=== PATIENT | female | born 1940 | race Caucasian/White ===

== ENCOUNTER 2023-05-26 14:42 | Emergency (ER) | payer MEDICARE, SELFPAY ==
--- NOTE | ~2023-05-26 | XR_ITS ---
EXAMINATION: XR forearm RT 2V DATE: 05/26/2023 15:33 INDICATION: Right forearm injury. TECHNIQUE: 2 views of right forearm were obtained. COMPARISON: None. FINDINGS: There is a comminuted fracture of diaphysis of right ulna. The main distal fracture fragmen t demonstrates one cortical width volar displacement. There is an old healed fracture of distal radiu s with 4 degrees dorsal tilt of the distal articular surface. Internal fixation is seen with volar an d dorsal plates and screws. The elbow joint space is normal. No elbow joint effusion. IMPRESSION: 1. Acute comminuted fracture of ulnar diaphysis. Reviewed, dictated and finalized at location A.
--- NOTE | ~2023-05-26 | XR_ITS ---
EXAMINATION: XR wrist RT min 3V DATE: 05/26/2023 15:33 INDICATION: Right wrist injury. TECHNIQUE: 3 views of right wrist were obtained. COMPARISON: None. FINDINGS: There is an old healed fracture of distal radius with dorsal and volar plates and screws. T he distal articular surface demonstrates 4 degrees dorsal tilt. There is an acute comminuted fracture of ulnar diaphysis. The distal fracture main distal fracture fragment demonstrates one cortical widt h volar displacement. There is severe osteoarthritis of radioscaphoid joint and radiolunate joint and triscaphe joint. Osteopenia is noted. IMPRESSION: 1. Acute comminuted fracture of ulnar diaphysis. 2. Polyarticular osteoarthritis. Reviewed, dictated and finalized at location A.
[2023-05-26 14:45] VITALS: BP 142/51; PULSE 64; RESP 12; TEMP 36.6; O2SAT 100
--- NOTE | 2023-05-26 15:26 | ED.UPPEXIN ---
HPI - Extremity Injury (Upper) General Chief Complaint: Extremity Injury, Upper Stated Complaint: R arm pain Time Seen by Provider: 05/26/23 15:06 History of Present Illness HPI narrative: [facility] and thrashing around per EMS report, injured her R forearm. Patient denies complaints. A&Ox1 at baseline Related Data Allergies Allergy/AdvReac Type Severity Reaction Status Date / Time No Known Allergies Allergy Verified 05/26/23 14:59 Review of Systems Review of Systems: ROS unobtainable: Yes unobtainable due to mental status Exam Narrative: EXAMINATION OF ORGAN SYSTEMS/BODY AREAS: Constitutional: Vital signs per nursing GENERAL:[No acute distress, non-toxic appearing.] HEAD: Normal with no signs of head trauma. EYES: EOMI, conjunctiva normal ENT: Hearing grossly intact LUNGS: Nonlabored breathing. HEART: [Regular rate and rhythm]. Normal radial pulse ABD: [Soft], [nontender to palpation] EXT: Normal range of motion, she is tender to palpation to her forearm/wrist on the right SKIN: [No rashes or lesions.] NEURO: [Alert. No gross focal sensory or strength deficits.] PSYCH: Normal affect Course Vital Signs Vital signs: Vital Signs Temperature 97.8 F 05/26/23 14:45 Pulse Rate 64 05/26/23 14:45 Respiratory Rate 12 05/26/23 14:45 Blood Pressure 142/51 H 05/26/23 14:45 Pulse Oximetry 100 05/26/23 14:45 Oxygen Delivery Room Air 05/26/23 14:45 Temperature 97.8 F 05/26/23 14:45 Pulse Rate 64 05/26/23 14:45 Respiratory Rate 12 05/26/23 14:45 Blood Pressure 142/51 H 05/26/23 14:45 Pulse Oximetry 100 05/26/23 14:45 Oxygen Delivery Room Air 05/26/23 14:45 Procedures Orthopedic Splinting/Casting Injury #1: Splinting/Casting Date: 05/26/23 Splinting/Casting Time: 16:45 Side: right Upper Extremity Injury Location: forearm Upper Extremity Immobilizer: sling/shoulder immobilizer and posterior splint Splint: customized in ED Pre-Procedure Neuro Vascular Exam: normal Post-Procedure Neuro Vascular Exam: normal MDM - Extremity Injury (Upper) MDM Narrative Medical decision making narrative: 1) Differential diagnosis: Sprain, fracture 2) Comorbidities: Dementia 3) External notes reviewed: n/a 4) History sources independently obtained from: EMS 5) Discussion of management with: n/a 6) Independent interpretation of: forearm xray: ulnar shaft fracture 7) Diagnostic tests or therapies considered but not ordered: n/a 8) Social determinants of health: n/a 9) Shared decision makinF presents here with injury to her right forearm, she is well appearing and resting comfortably unless she touches her right arm at which point she starts crying. X-ray unfortunately showing acute ulnar fracture, splint placed, given follow-up to Orthopedics. Discharge Plan Discharge Clinical Impression: Ulnar shaft fracture Patient Disposition: [facility]Asst Living Condition: Stable Instructions: Antibiotic Form, Arm Fracture in Adults (ED) Additional Instructions: Please keep the arm splint until you follow-up with Orthopedics, come back to the hospital if you feel worse. Prescriptions: New methocarbamol 750 mg tablet 750 mg PO TID PRN (Reason: muscle spasm) Qty: 30 0RF acetaminophen [Tylenol Extra Strength] 500 mg tablet 1,000 mg PO Q6H PRN (Reason: pain) Qty: 50 0RF Follow-up/Referrals: Ronny Allen MD [Physician] - 2 Days
[2023-05-26] MEDS: MORPHINE SULFATE (*CRX) 4 MG/ML INJ IV PUSH (16:34)
[2023-05-26 18:22] VITALS: BP 137/61; PULSE 67; RESP 17; O2SAT 98
== END 2023-05-26 18:25 ==
PROVIDERS: Emergency Provider Emergency Medicine; PCP Internal Medicine
DX: S59.091A Other physeal fracture of lower end of ulna, right arm, initial encounter for closed fracture (principal); F03.90 Unspecified dementia, unspecified severity, without behavioral disturbance, psychotic disturbance, mood disturbance, and anxiety; M19.031 Primary osteoarthritis, right wrist; X58.XXXA Exposure to other specified factors, initial encounter
CPT/HCPCS: 29105; 73090; 73110; 96374; 99284; A4565; J2270

== ENCOUNTER 2023-12-03 17:57 | Inpatient (IN) | payer MEDICARE, SELFPAY ==
[2023-12-03] VITALS (11 sets, daily range): BP systolic 128–171; BP diastolic 53–138; PULSE 57–64; RESP 15–23; TEMP 36.7; O2SAT 96–100
--- NOTE | ~2023-12-03 | CT_ITS ---
EXAMINATION: CT brain wo con DATE: 12/03/2023 18:58 INDICATION: fall, unknown head injury . TECHNIQUE: Computed tomography (CT) of the head was performed without intravenous contrast. The mA wa s adjusted according to patient size. Iterative reconstruction technique was employed. The dose-lengt h product was 983.67 mGy-cm. COMPARISON: None. FINDINGS: No acute intracranial hemorrhage or extra-axial fluid collection. No hydrocephalus, mass, or herniation. No acute ischemic infarct. Unremarkable dural venous sinus attenuation. No acute osseous abnormality. Complete right mastoid air cell opacification, near complete left mastoid air cell opacification. Jose ateral middle ear fluid, extensive paranasal sinus mucosal thickening sparing only the frontal sinuse s.. Moderate atrophy and chronic white matter change. Atherosclerotic intracranial calcification. Bilater al lens replacements. Bilateral old lacunar infarcts. Focal old right medial occipital infarct. IMPRESSION: No acute intracranial process. Extensive paranasal sinus mucoperiosteal disease. Bilateral mastoid effusions and middle ear fluid, correlate for clinical findings of otomastoiditis. Reviewed, dictated and finalized at location K. IMPRESSION: No acute intracranial process. Extensive paranasal sinus mucoperiosteal disease. Bilateral mastoid effusions and middle ear fluid, correlate for clinical findin gs of otomastoiditis.
--- NOTE | ~2023-12-03 | US_ITS ---
EXAMINATION: US renal BI DATE: 12/05/2023 15:31 INDICATION: Elevated creatinine. TECHNIQUE: Multiple ultrasound grayscale images of the kidneys were obtained. COMPARISON: None. FINDINGS: Sensitivity is decreased by obesity. The right kidney measures 12.5 x 4.4 x 5.4 cm. The left kidney m easures 9.0 x 4.6 x 5.6 cm. The kidneys demonstrate normal parenchymal echogenicity. There is no hydr onephrosis. The bladder is not visualized. IMPRESSION: 1. Normal kidney sizes. No hydronephrosis. Reviewed, dictated and finalized at location A.
--- NOTE | ~2023-12-03 | XR_ITS ---
CHEST RADIOGRAPH CLINICAL HISTORY: sob . COMPARISON: 12/03/2023 TECHNIQUE: Single portable view of the chest. Examination is limited both by patient rotation and mod erate kyphosis.. FINDINGS The cardiomediastinal silhouette is partially obscured. Increased interstitial markings are identified bilaterally, findings suggesting mild pulmonary vascul ar congestion. The remainder of the lungs are clear. IMPRESSION: Limited evaluation of the chest secondary to patient rotation and moderate kyphosis demonstrates mild pulmonary vascular congestion, without focal infiltrate or significant pleural effusion. Reviewed, dictated and finalized at location A. IMPRESSION: Limited evaluation of the chest secondary to patient rotation and moderate kyph osis demonstrates mild pulmonary vascular congestion, without focal infiltrate or significant pleural effusion.
--- NOTE | ~2023-12-03 | CT_ITS ---
EXAMINATION: CT cervical spine wo con DATE: 12/03/2023 18:58 INDICATION: fall, unknown head injury TECHNIQUE: Computed tomography (CT) of the cervical spine was performed without intravenous contrast. Automated exposure control and iterative reconstruction technique were employed. The dose-length pro duct was 460.39 mGy-cm. COMPARISON: None. FINDINGS: Vertebral Body Alignment: Multilevel retrolisthesis at C3-4. Minimal anterolisthesis at C4-5. Craniocervical and atlantoaxial alignment: Moderate degenerative change with pannus. Alignment intact . Osseous structures/fracture: No evidence of a lytic or blastic process in the visualized spine. No e vidence of acute fracture. Chronic appearing fragmentation of the spinous process tips at C6 and C7. Cervical soft tissues: The paraspinal soft tissues planes are maintained. Degenerative changes: Degenerative changes, without severe neural foraminal or central canal narrowin g. IMPRESSION: No acute fracture or traumatic malalignment in the cervical spine. Reviewed, dictated and finalized at location K.
--- NOTE | ~2023-12-03 | XR_ITS ---
EXAMINATION: XR chest 1V Exam Date/Time: 12/03/2023 18:49 CDT HISTORY: fall Comparison: None. RESULT: Lines, tubes, and devices: None. Lungs and pleura: Senescent change, otherwise clear. Cardiomediastinal silhouette: Unremarkable. Other: No acute osseous or upper abdominal finding. IMPRESSION: No acute cardiopulmonary process. Reviewed, dictated and finalized at location K.
--- NOTE | 2023-12-03 18:33 | ECG_ITS ---
Test Date: 2023-12-03 19:10:09 Measurements Intervals [place] Rate: 58 P: 98 NC: 224 QRS: 15 QRSD: 117 T: 62 QT: 452 QTc: 446 Interpretive Statements SINUS BRADYCARDIA WITH FIRST DEGREE AV BLOCK RIGHT BUNDLE BRANCH BLOCK [120+ ms QRS DURATION, UPRIGHT V1, 40+ ms S IN I/aVL/V4/V5/V6] No previous ECG available for comparison Electronically Signed On 12-03-2023 21:10:30 CDT by Zaki Molina M.D.
[2023-12-03 19:52] LABS: Basophils Absolute Auto 0.1 K/mm3 (0.0-0.1); Basophils Percent Auto 0.6 % (0.2-1.2); Eosinophils Absolute Auto 0.2 K/mm3 (0-0.3); Eosinophils Percent Auto 2.3 % (0-4.4); Hematocrit 33.6 % (37.0-47.0); Hemoglobin 11.1 g/dL (12.0-15.0); Immature Granulocyte Absolute 0.07 K/mm3 (0.00-0.031); Immature Granulocyte Percent A 0.7 % (0-0.5); Lymphocytes Absolute Auto 2.14 K/mm3 (0.9-3.2); Lymphocytes Percent Auto 20.6 % (18.3-44.2); Mean Corpuscular Hemoglobin 31.1 pg (26-34); Mean Corpuscular Volume 94.1 fl (80-100); Mean Platelet Volume 10.3 fl (7.4-10.4); Monocytes Absolute Auto 0.7 K/mm3 (0.1-0.6); Monocytes Percent Auto 6.7 % (2.6-8.5); Neutrophils Absolute Auto 7.2 K/mm3 (1.3-6.7); Neutrophils Percent Auto 69.1 % (45.5-73.1); Platelet Count Result 326 k/mm3 (150-375); Red Blood Count 3.57 M/mm3 (4.2-5.4); Red Cell Distribution Width 13.7 % (11.5-14.5); White Blood Count 10.4 K/mm3 (4.5-10.0)
[2023-12-03 20:05] LABS: Anion Gap 10 mmol/L (4-12); Blood Urea Nitrogen 54 mg/dL (7-17); Calcium 9.3 mg/dL (8.4-10.2); Carbon Dioxide 25 mmol/L (22-30); Chloride 101 mmol/L (98-107); Estimated CRCL calculation 16 ml/min; Estimated Glomerular Filt Rate 17; Glucose 272 mg/dL (65-110); Potassium 5.4 mmol/L (3.4-5.0); Sodium 136 mmol/L (137-145)
[2023-12-03 20:16] LABS: Add Urine Microscopic? YES; Appearance Urine Turbid (Clear); Bacteria Urine 4+ /hpf; Bilirubin Urine Negative (Negative); Blood Urine Negative (Negative); Color Urine Yellow (Yellow); Glucose Urine UA Negative (Negative); Ketones Urine Negative (Negative); Leukocyte Esterase Ur 3+ LEU/UL (Negative); Need Manual Microscopic Reviewed; Nitrate Urine Positive (Negative); Protein Urine 3+ mg/dL (Negative); RBC Urine 0-2 /hpf (0-2); Specific Grav Ur 1.013 (1.001-1.035); Squamous Epithelial Cell Urine None Seen /hpf (Few); Urobilinogen Urine 0.2 mg/dL (<2.0); WBC Urine >100 /hpf (0-3)
[2023-12-03] MEDS: HALOPERIDOL LACTATE 5 MG/ML VIAL IM (21:32)
--- NOTE | 2023-12-03 21:32 | ED.FALL ---
HPI - Fall General Chief Complaint: Fall Stated Complaint: fall while transferring History of Present Illness HPI Narrative: 83-year-old female with a history of COPD, MDD, hypertension, cardiomegaly, hypothyroidism, type 2 diabetes, 3rd, CKD stage 3, hyperlipidemia, thrombocytosis presents to the emergency department via EMS from local care home for a fall. the patient is very hard of hearing. Per care home report the patient fell while trying to transfer from bed to her wheelchair. This was unwitnessed and is unsure if she lost consciousness or hit her head. Upon my evaluation the patient has no complaints. She is A&O times 2-3 which is her baseline. Related Data Home Medications Medication Instructions Recorded Confirmed amlodipine 5 mg tablet 5 mg PO DAILY 08/07/23 12/03/23 atorvastatin 10 mg tablet 10 mg PO DAILY 08/07/23 12/03/23 brexpiprazole 0.5 mg tablet 0.5 mg PO DAILY 08/07/23 12/03/23 (Rexulti) bupropion HCl 150 mg 24 hr tablet, 300 mg PO QAM 08/07/23 12/03/23 extended release (Wellbutrin XL) divalproex 250 mg tablet,delayed 250 mg PO Q12H 08/07/23 12/03/23 release (Depakote) famotidine 20 mg tablet 20 mg PO DAILY 08/07/23 12/03/23 furosemide 40 mg tablet 40 mg PO QAM 08/07/23 12/03/23 glucagon 1 mg solution for 1 mg subcut Q20M PRN Hypoglycemia 08/07/23 12/03/23 injection levothyroxine 150 mcg capsule 150 mcg PO DAILY 08/07/23 12/03/23 linagliptin 5 mg tablet (Tradjenta) 5 mg PO QAM 08/07/23 12/03/23 lisinopril 40 mg tablet 40 mg PO DAILY 08/07/23 12/03/23 metformin 500 mg tablet 500 mg PO DAILY 08/07/23 12/03/23 metolazone 2.5 mg tablet 2.5 mg PO DAILY 08/07/23 12/03/23 metoprolol tartrate 25 mg tablet 25 mg PO BID 08/07/23 12/03/23 multivitamin 1 tablet PO DAILY 08/07/23 12/03/23 ondansetron HCl 4 mg tablet 4 mg PO Q6H PRN nausea/vomiting 08/07/23 12/03/23 albuterol sulfate 90 mcg/actuation 2 puff inhalation Q4H PRN 12/03/23 12/03/23 aerosol inhaler sob/wheezing ascorbic acid (vitamin C) 1,000 mg 1 g PO DAILY 12/03/23 12/03/23 tablet calcium carbonate 400 mg PO BID 12/03/23 12/03/23 cholestyramine (with sugar) 4 gram 1 ea PO DAILY 12/03/23 12/03/23 powder for susp in a packet insulin glargine 100 unit/mL (3 30 unit subcut DAILY 12/03/23 12/03/23 mL) subcutaneous pen (Lantus Solostar U-100 Insulin) insulin lispro 100 unit/mL 12 unit subcut DIRECTED 12/03/23 12/03/23 subcutaneous solution (Admelog U-100 Insulin lispro) isosorbide mononitrate 30 mg 30 mg PO DAILY 12/03/23 12/03/23 tablet,extended release 24 hr lanolin alcohols-mineral 1 applic topical BID 12/03/23 12/03/23 oil-w.petrolatum-ceresin topical cream (Eucerin topical cream) magnesium oxide 400 mg PO DAILY 12/03/23 12/03/23 nitroglycerin 0.4 mg sublingual 0.4 mg sublingual Q5M PRN Chest 12/03/23 12/03/23 tablet Pain zinc oxide 1 applic topical QSHIFT 12/03/23 12/03/23 Allergies Allergy/AdvReac Type Severity Reaction Status Date / Time No Known Allergies Allergy Verified 12/03/23 22:59 Review of Systems Review of Systems: All systems reviewed & are unremarkable except as noted in HPI and below PMFSH Past Medical History Medical History Ulna fracture Social History Social History Smoking status: Never smoker Spiritual care concerns: No Exam Narrative: GENERAL: Well-appearing, well-nourished, and in no acute distress. HEAD: Normocephalic, atraumatic. EYES: PERRLA and EOMI. ENT: Nares clear, no rhinorrhea or epistaxis. Mucous membranes moist. NECK: No cervical spinous tenderness, step-offs or deformities BACK: no thoracolumbar spinous tenderness, step-offs or deformities CHEST: Clear to auscultation. No respiratory distress. HEART: Regular rate and rhythm. No murmur heard. Normal peripheral pulses. ABDOMEN: Soft, nontender, nondistended, normal active bowel sounds. EXTREMITIES: Normal range of motion. No edema. no tenderness to BUE or BLE SKIN: Warm, dry, no rash. NEURO: No focal deficits. Alert and oriented x2. Moving all extremities spontaneously Course Course Emergency Course: I discussed the patient's case with her daughter Janie called the ED. She agrees with the disposition. Vital Signs Vital signs: Vital Signs Temperature 98.0 F 12/03/23 18:04 Pulse Rate 57 L 12/03/23 18:04 Respiratory Rate 19 12/03/23 18:04 Blood Pressure 171/66 H 12/03/23 18:04 Pulse Oximetry 100 12/03/23 18:04 Oxygen Delivery Room Air 12/03/23 18:04 Temperature 97.6 F 12/04/23 01:45 Pulse Rate 59 L 12/04/23 01:45 Respiratory Rate 16 12/04/23 01:45 Blood Pressure 173/57 H 12/04/23 01:45 Pulse Oximetry 100 12/04/23 01:45 Oxygen Delivery Room Air 12/04/23 00:38 MDM - Fall MDM Narrative Medical decision making narrative: 83-year-old female presents to the ED via EMS from local care home for a unwitnessed fall. Triage vitals with hypertension, otherwise unremarkable. Given falls unwitnessed, will obtain CT brain and cervical spine and basic labs. CBC with mild leukocytosis of 10.4. Hemoglobin is 11.1, no prior for comparison. Chemistries reveal hyperkalemia 5.5 and creatinine of 2.7. Patient does have a history of CKD but she has not been to our hospital before, there are no prior labs for comparison. UA with nitrite positive urinary tract infection, urine culture is pending. CT cervical spine show no acute findings. CT brain shows no acute intracranial process. There is extensive paranasal sinus mucoperiosteal disease and bilateral mastoid effusions of middle ear fluid. Chest x-ray is unremarkable. Attempted to contact care home to identified patient's baseline creatinine. Patient became very agitated and began kicking and punching staff. Patient became threat to staff members and myself and was given IM Haldol and placed in soft restraints. She was started on IV Rocephin for UTI. Plan to admit hospitalist paranoid fortunately I am unable to evaluate the patient's inner ear secondary to hostility. I discussed the case with the hospitalist, Dr. Kenny, who agrees the plan for admission. Lab Data 12/03/23 19:32 12/03/23 19:32 Labs: Lab Results 12/03/23 12/03/23 Range/Units 19:32 19:56 WBC 10.4 H (4.5-10.0) K/mm3 RBC 3.57 L (4.2-5.4) M/mm3 Hgb 11.1 L (12.0-15.0) g/dL Hct 33.6 L (37.0-47.0) % MCV 94.1 (80-100) fl MCH 31.1 (26-34) pg MCHC 33.0 (32-36) g/dl RDW 13.7 (11.5-14.5) % Plt Count 326 (150-375) k/mm3 MPV 10.3 (7.4-10.4) fl Immature Gran % (Auto) 0.7 H (0-0.5) % Neut % (Auto) 69.1 (45.5-73.1) % Lymph % (Auto) 20.6 (18.3-44.2) % [place] % (Auto) 6.7 (2.6-8.5) % Eos % (Auto) 2.3 (0-4.4) % Baso % (Auto) 0.6 (0.2-1.2) % Lymph # (Auto) 2.14 (0.9-3.2) K/mm3 [place] # (Auto) 0.7 H (0.1-0.6) K/mm3 Eos # (Auto) 0.2 (0-0.3) K/mm3 Baso # (Auto) 0.1 (0.0-0.1) K/mm3 Abs Immat Gran (auto) 0.07 H (0.00-0.031) K/mm3 Absolute Neuts (auto) 7.2 H (1.3-6.7) K/mm3 Absolute Nucleated RBC 0.000 (0.0-0.012) K/mm3 Nucleated RBC % 0.0 (0.0-0.2) % Sodium 136 L (137-145) mmol/L Potassium 5.4 H (3.4-5.0) mmol/L Chloride 101 (98-107) mmol/L Carbon Dioxide 25 (22-30) mmol/L Anion Gap 10 (4-12) mmol/L BUN 54 H (7-17) mg/dL Creatinine 2.70 H (0.7-1.0) mg/dL Estim Creat Clear Calc 16 ml/min Estimated GFR 17 L (59 - ) Glucose 272 H (65-110) mg/dL Calcium 9.3 (8.4-10.2) mg/dL Urine Color Yellow (Yellow) Urine Appearance Turbid H (Clear) Urine pH 5.0 (5.0-9.0) Ur Specific [place] 1.013 (1.001-1.035) Urine Protein 3+ H (Negative) mg/dL Urine Glucose (UA) Negative (Negative) mg/dL Urine Ketones Negative (Negative) mg/dL Ur Blood (Man) Negative (Negative) Urine Nitrate Positive H (Negative) Urine Bilirubin Negative (Negative) Urine Urobilinogen 0.2 (<2.0) mg/dL Add Ur Microanalysis Reviewed Leukocyte Esterase Rfl 3+ H (Negative) SADIE/UL Urine RBC 0-2 (0-2) /hpf Urine WBC >100 H (0-3) /hpf Ur Squamous Epith Cells None seen (Few) /hpf Urine Bacteria 4+ /hpf Urine Casts 6-10 Discharge Plan Discharge Clinical Impression: UTI (urinary tract infection), Acute kidney injury superimposed on CKD Patient Disposition: Still a Patient Condition: Stable
--- NOTE | 2023-12-03 21:50 | PM.IMHP ---
H&P: HPI History of Present Illness Date/Time: 12/03/23 21:50 Chief Complaint: fall Narrative: This is an 83-year-old female WITH PAST MEDICAL HISTORY SIGNIFICANT FOR CHRONIC KIDNEY DISEASE, HYPERTENSION, INSULIN-DEPENDENT DIABETES MELLITUS, COPD, PATIENT IS WHEELCHAIR-BOUND SHE LIVES AT A PENITENTIARY. PATIENT WAS BROUGHT TO THE EMERGENCY ROOM DUE TO FALL WHILE TRANSFERRING FROM THE WHEELCHAIR TO THE BED HOWEVER THIS WAS UNWITNESSED. HERE A PRELIMINARY WORKUP WAS SIGNIFICANT FOR URINALYSIS WITH MORE THAN 100 WBC'S PER HIGH-POWER FIELD. AT THE TIME OF MY VISIT PATIENT WAS UNABLE TO GIVE ANY MEANINGFUL CONTRIBUTION TO HISTORY OF PRESENT ILLNESS. PRELIMINARY WORKUP WAS SIGNIFICANT FOR BUN OF 54 CREATININE 2.7 EXAMINATION: CT brain wo con DATE: 12/03/2023 18:58 INDICATION: fall, unknown head injury . TECHNIQUE: Computed tomography (CT) of the head was performed without intravenous contrast. The mA was adjusted according to patient size. Iterative reconstruction technique was employed. The dose-length product was 983.67 mGy-cm. COMPARISON: None. FINDINGS: No acute intracranial hemorrhage or extra-axial fluid collection. No hydrocephalus, mass, or herniation. No acute ischemic infarct. Unremarkable dural venous sinus attenuation. No acute osseous abnormality. Complete right mastoid air cell opacification, near complete left mastoid air cell opacification. Bilateral middle ear fluid, extensive paranasal sinus mucosal thickening sparing only the frontal sinuses.. Moderate atrophy and chronic white matter change. Atherosclerotic intracranial calcification. Bilateral lens replacements. Bilateral old lacunar infarcts. Focal old right medial occipital infarct. IMPRESSION: No acute intracranial process. Extensive paranasal sinus mucoperiosteal disease. Bilateral mastoid effusions and middle ear fluid, correlate for clinical findings of otomastoiditis. EXAMINATION: XR chest 1V Exam Date/Time: 12/03/2023 18:49 CDT HISTORY: fall Comparison: None. RESULT: Lines, tubes, and devices: None. Lungs and pleura: Senescent change, otherwise clear. Cardiomediastinal silhouette: Unremarkable. Other: No acute osseous or upper abdominal finding. IMPRESSION: No acute cardiopulmonary process. EXAMINATION: CT cervical spine wo con DATE: 12/03/2023 18:58 INDICATION: fall, unknown head injury TECHNIQUE: Computed tomography (CT) of the cervical spine was performed without intravenous contrast. Automated exposure control and iterative reconstruction technique were employed. The dose-length product was 460.39 mGy-cm. COMPARISON: None. FINDINGS: Vertebral Body Alignment: Multilevel retrolisthesis at C3-4. Minimal anterolisthesis at C4-5. Craniocervical and atlantoaxial alignment: Moderate degenerative change with pannus. Alignment intact. Osseous structures/fracture: No evidence of a lytic or blastic process in the visualized spine. No evidence of acute fracture. Chronic appearing fragmentation of the spinous process tips at C6 and C7. Cervical soft tissues: The paraspinal soft tissues planes are maintained. Degenerative changes: Degenerative changes, without severe neural foraminal or central canal narrowing. IMPRESSION: No acute fracture or traumatic malalignment in the cervical spine. Review of Systems Review of Systems: ROS unobtainable: Yes unobtainable due to medical condition ( CONFUSION) [facility] Past Medical History Medical History Ulna fracture Social History Social History Smoking status: Never smoker Spiritual care concerns: No Meds Home Medications and Allergies Home Medications Medication Instructions Recorded Confirmed Type methocarbamol 750 mg tablet 750 mg PO TID PRN muscle spasm #30 05/26/23 12/03/23 Rx tabs amlodipine 5 mg tablet 5 mg PO DAILY 08/07/23 12/03/23 History atorvastatin 10 mg tablet 10 mg PO DAILY 08/07/23 12/03/23 History brexpiprazole 0.5 mg tablet 0.5 mg PO DAILY 08/07/23 12/03/23 History (Rexulti) bupropion HCl 150 mg 24 hr tablet, 300 mg PO QAM 08/07/23 12/03/23 History extended release (Wellbutrin XL) divalproex 250 mg tablet,delayed 250 mg PO Q12H 08/07/23 12/03/23 History release (Depakote) famotidine 20 mg tablet 20 mg PO DAILY 08/07/23 12/03/23 History furosemide 40 mg tablet 40 mg PO QAM 08/07/23 12/03/23 History glucagon 1 mg solution for 1 mg subcut Q20M PRN Hypoglycemia 08/07/23 12/03/23 History injection levothyroxine 150 mcg capsule 150 mcg PO DAILY 08/07/23 12/03/23 History linagliptin 5 mg tablet (Tradjenta) 5 mg PO QAM 08/07/23 12/03/23 History lisinopril 40 mg tablet 40 mg PO DAILY 08/07/23 12/03/23 History metformin 500 mg tablet 500 mg PO DAILY 08/07/23 12/03/23 History metolazone 2.5 mg tablet 2.5 mg PO DAILY 08/07/23 12/03/23 History metoprolol tartrate 25 mg tablet 25 mg PO BID 08/07/23 12/03/23 History multivitamin 1 tablet PO DAILY 08/07/23 12/03/23 History ondansetron HCl 4 mg tablet 4 mg PO Q6H PRN nausea/vomiting 08/07/23 12/03/23 History albuterol sulfate 90 mcg/actuation 2 puff inhalation Q4H PRN 12/03/23 12/03/23 History aerosol inhaler sob/wheezing ascorbic acid (vitamin C) 1,000 mg 1 g PO DAILY 12/03/23 12/03/23 History tablet calcium carbonate 400 mg PO BID 12/03/23 12/03/23 History cholestyramine (with sugar) 4 gram 1 ea PO DAILY 12/03/23 12/03/23 History powder for susp in a packet insulin glargine 100 unit/mL (3 30 unit subcut DAILY 12/03/23 12/03/23 History mL) subcutaneous pen (Lantus Solostar U-100 Insulin) insulin lispro 100 unit/mL 12 unit subcut DIRECTED 12/03/23 12/03/23 History subcutaneous solution (Admelog U-100 Insulin lispro) isosorbide mononitrate 30 mg 30 mg PO DAILY 12/03/23 12/03/23 History tablet,extended release 24 hr lanolin alcohols-mineral 1 applic topical BID 12/03/23 12/03/23 History oil-w.petrolatum-ceresin topical cream (Eucerin topical cream) magnesium oxide 400 mg PO DAILY 12/03/23 12/03/23 History nitroglycerin 0.4 mg sublingual 0.4 mg sublingual Q5M PRN Chest 12/03/23 12/03/23 History tablet Pain zinc oxide 1 applic topical QSHIFT 12/03/23 12/03/23 History Allergies Allergy/AdvReac Type Severity Reaction Status Date / Time No Known Allergies Allergy Verified 12/03/23 22:59 Vital Signs Vital Signs - 24 hr 12/03/23 18:04 12/03/23 18:12 12/03/23 18:15 Temperature 98.0 F Pulse Rate 57 L 59 L 58 L Respiratory Rate 19 16 16 Blood Pressure 171/66 H Pulse Oximetry 100 100 100 Oxygen Delivery Room Air 12/03/23 18:17 12/03/23 18:30 12/03/23 18:32 Temperature Pulse Rate 57 L 59 L 58 L Respiratory Rate 17 15 16 Blood Pressure 156/60 H 146/53 H Pulse Oximetry 100 100 100 Oxygen Delivery 12/03/23 19:30 Temperature Pulse Rate 60 Respiratory Rate 18 Blood Pressure 152/54 H Pulse Oximetry 98 Oxygen Delivery Exam Narrative: laying in a stretcher Const: General: comfortable, no acute distress, well developed, alert, awake and average body habitus Nutritional Appearance: average body habitus Orientation/consciousness: oriented to person Other: well-appearing HENMT: Head: normal to inspection, normocephalic and atraumatic Ears: hearing grossly normal bilaterally Face/Nose/Sinus: normal facial exam Face and sinus: normal facial exam Eyes: General: appearance normal, both eyes and all related structures Pupils: Equal, round and reactive pupils present EOM: EOMs intact bilaterally Neck: Neck: full ROM, no lymphadenopathy and no JVD Thyroid: thyroid normal Lymphatic: no lymphadenopathy noted Resp: Effort & Inspection: normal respiratory effort and able to speak in complete sentences Auscultation: clear to auscultation bilaterally Cardio: Jugular venous distension: no JVD Rate: regular rate Rhythm: regular rhythm Heart sounds: S1 normal heart sound present and S2 normal heart sound present GI: GI Palp: Yes Soft to palpation and Yes No hepatosplenomegaly present : General: Yes deferred Skin: Rashes: no rashes Wounds: no wounds Neuro: General: oriented to person, no focal motor deficits, CN's II-XI intact bilaterally and Unable to assess gait Cranial nerves: Yes CN's II-XII intact bilaterally and Yes Equal, round and reactive pupils present Cognition (Neuro): abnormal cognition ( patient is only oriented to person) Speech: normal speech Gait exam (Neuro): Unable to assess gait Motor exam (neuro): 5/5 motor strength present throughout Extrem: General: normal to inspection, full ROM, no joint enlargement and no pedal edema H&P: Results Labs Labs: Short CBC 12/03/23 Range/Units 19:32 WBC 10.4 H (4.5-10.0) K/mm3 Hgb 11.1 L (12.0-15.0) g/dL Hct 33.6 L (37.0-47.0) % Plt Count 326 (150-375) k/mm3 BMP 12/03/23 19:32 Sodium 136 L Potassium 5.4 H Chloride 101 Carbon Dioxide 25 BUN 54 H Creatinine 2.70 H Glucose 272 H Calcium 9.3 Urine 12/03/23 Range/Units 19:56 Urine Color Yellow (Yellow) Urine Appearance Turbid H (Clear) Urine pH 5.0 (5.0-9.0) Ur Specific [place] 1.013 (1.001-1.035) Urine Protein 3+ H (Negative) mg/dL Urine Glucose (UA) Negative (Negative) mg/dL Assessment and Plan Assessment and plan (1) Urinary tract infection: Code(s): N39.0 - Urinary tract infection, site not specified Status: Acute Assessment and Plan: ADMIT TO REGULAR MEDICAL FLOOR STARTED ON ROCEPHIN AWAIT CULTURES (2) Type 2 diabetes mellitus: Code(s): E11.9 - Type 2 diabetes mellitus without complications Status: Acute Assessment and Plan: CONTINUE INSULIN ACCU-CHEKS AC AND HS CARB CONSISTENT DIET HOLDING METFORMIN HOLDING THE LINAGLIPTIN (3) Acute kidney injury superimposed on CKD: Code(s): N17.9 - Acute kidney failure, unspecified; N18.9 - Chronic kidney disease, unspecified Status: Acute Assessment and Plan: HOLDING LISINOPRIL HOLDING METOLAZONE HOLDING FUROSEMIDE RENAL ULTRASOUND IN A RECEIVING IV FLUIDS DAILY BMP CONTINUE TO MONITOR BUN AND CREATININE (4) Hypertension: Code(s): I10 - Essential (primary) hypertension Status: Acute Assessment and Plan: CONTINUE AMLODIPINE Hospitalist [facility] Advance Care Plan I have confirmed that the patient's Advanced Care Plan is present, code status is documented, or surrogate decision maker is listed in patient medical record.: Yes Medication Reconciliation I have utilized all available resources to obtain, update and review the patients current medications (includes all prescriptions, OTC, herbals, cannabis, and nutritional supplements).: Yes
--- NOTE | 2023-12-03 21:57 | PC.NURSE ---
0915: This RN was in room next door when I heard pt yelling at tech and tech came in a told this RN that she is trying to take IV out due to the tape hurting her hand . This Rn went into room and tried to explain why we need to keep IV in for medication and admission reasosns. Pt is hard of hearing and this Rn kept trying to speak loud enough for pt but she was not understanding. RN richard and Rn dex came into room due to the yelling from pt. Pt started scratching, kicking, and hitting nurses. Pt keeps saying get it off . All RN attempted to ask for pt name and where she is at but ekpt repeating take it off . Pt ripped her IV out after pt was fighting RNs. ELIF bradley came in and verbally order haldol and spoft restraints.
--- NOTE | 2023-12-03 23:34 | PC.NURSE ---
RN called to 3MS to report patient safe word to disclose information is identified as Scruffy ; Reported to JARAD Painter.
[2023-12-04] VITALS (12 sets, daily range): BP systolic 103–173; BP diastolic 57–102; PULSE 59–92; RESP 16–22; TEMP 36.2–36.9; O2SAT 90–100; BMI 32.3
[2023-12-04] MEDS: SODIUM CHLORIDE 0.9% IV 1,000 ML 75 ML IV CONT ×2 (01:25→13:26)
--- NOTE | 2023-12-04 01:38 | PC.NURSE ---
I spoke with pt's daugther/POA re needing pt's NF-med. She stated that she would attempt to get it and bring it in. During the conversation, she explained that pt is in end stage Alzheimer's and is always violent and combative and is an ongoing problem at her facility for said behavior. Additionally, this behavior is worse if/when she has a UTI or hyper/hypoglycemic. She also stated that pt's glucose baseline is in the 100's because as she approaches 100 she becomes hypoglycemic including agitation, diaphoresis, et al. The same is true, per the POA, if she becomes too high which is around 500.
[2023-12-04] MEDS: LEVOTHYROXINE SODIUM 150 MCG TABLET PO (05:17)
[2023-12-04 07:46] LABS: Glucose Point of Care 234 mg/dl (65-105)
--- NOTE | 2023-12-04 07:51 | P.PNIM_ITS ---
Progress Note: A&P Assessment and Plan (1) UTI (urinary tract infection): Qualifiers: Hematuria presence: without hematuria Urinary tract infection type: acute cystitis Qualified Code(s): N30.00 - Acute cystitis without hematuria Code(s): N39.0 - Urinary tract infection, site not specified Status: Acute Assessment and Plan: - Cx pending, started on ceftriaxone which will continue pending c/s results. (2) Acute kidney injury superimposed on CKD: Code(s): N17.9 - Acute kidney failure, unspecified; N18.9 - Chronic kidney disease, unspecified Status: Acute Assessment and Plan: - Undetermined ckd status or prior records available for review. Repeat labs at 12 hours without significant change, will continue IVF at current rate with close attention to volume status. With the significant diuretic regimen acacia may be iatrogenic. - Renal u/s is pending. - PTH intact in the am. (3) Hypertension: Code(s): I10 - Essential (primary) hypertension Status: Acute Assessment and Plan: - Hold lisinopril and diuretics. - Start hydralazine. (4) Type 2 diabetes mellitus: Code(s): E11.9 - Type 2 diabetes mellitus without complications Status: Acute Assessment and Plan: - Accuchecks ordered, CC diet. Hold metformin in light of renal function. - Lantus 30 units daily. - Hold mealtime 12 units currently with very poor intake noted this am, may need reintroduced if intake improves. (5) Dementia: Code(s): F03.90 - Unspecified dementia, unspecified severity, without behavioral disturbance, psychotic disturbance, mood disturbance, and anxiety Status: Acute Assessment and Plan: - Known dementia, history of combativeness. - Currently in restraints which will continue for the patient's safety. Close monitoring and removal if safely able to tolerate. Plan Juliet is stable on examination this morning. Plan to obtain renal u/s and trend labs, consider nephrology consult if not improving. Expect 48 hours of further hospitalization. Time Spent With Patient Time with patient: Greater than 35 minutes Subjective Date/time seen: 12/04/23 07:51 Interval history: Juliet is awake this morning but does not provide meaningful information. Nursing reports she was awake much of the previous shift with agitation. Review of Systems Review of Systems: patient unable to cooperate with history. Exam Narrative: GENERAL APPEARANCE: Appears to be in no acute distress. HEAD: normocephalic atraumatic ENT: Hearing grossly intact, no nasal discharge NECK: Neck supple, trachea midline. CARDIAC: Normal S1/S2. Rhythm is regular. No murmurs, rubs, or gallops. No cyanosis or pallor. Extremities are warm and well perfused. LUNGS: Clear to auscultation without rales, rhonchi, wheezing or diminished breath sounds. Respirations even and unlabored. ABDOMEN: BS positive x 4 quadrants. Soft, nondistended, nontender. No guarding or rebound. MSK: No joint tenderness/swelling, moves all extremities. PERIPHERAL VASCULAR: Peripheral pulses palpable. Normal perfusion, cap refill <2 seconds. Trace to 1+ BLLE edema. NEURO: Does not follow commands, does not answer questions. PERALTA. No focal deficits. SKIN: Sammy Martinez without lesions or eruptions. PSYCH: SELENA Objective Data Vital Signs Vital Signs: Vital Signs - 24 hr 12/03/23 18:04 12/03/23 18:12 12/03/23 18:15 Temperature 98.0 F Pulse Rate 57 L 59 L 58 L Respiratory Rate 19 16 16 Blood Pressure 171/66 H Pulse Oximetry 100 100 100 Oxygen Delivery Room Air 12/03/23 18:17 12/03/23 18:30 12/03/23 18:32 Temperature Pulse Rate 57 L 59 L 58 L Respiratory Rate 17 15 16 Blood Pressure 156/60 H 146/53 H Pulse Oximetry 100 100 100 Oxygen Delivery 12/03/23 19:30 12/03/23 22:15 12/03/23 22:28 Temperature Pulse Rate 60 60 64 Respiratory Rate 18 18 23 H Blood Pressure 152/54 H 164/65 H 128/111 H Pulse Oximetry 98 98 96 Oxygen Delivery 12/03/23 23:13 12/03/23 23:45 12/04/23 00:38 Temperature Pulse Rate 63 61 Respiratory Rate 18 18 Blood Pressure 128/80 156/138 H Pulse Oximetry 97 97 Oxygen Delivery Room Air 12/04/23 01:45 12/04/23 06:00 Temperature 97.6 F 97.2 F L Pulse Rate 59 L 64 Respiratory Rate 16 18 Blood Pressure 173/57 H Pulse Oximetry 100 97 Oxygen Delivery Intake/Output Intake/Output: Intake & Output 12/01/23 12/02/23 12/03/23 12/04/23 23:59 23:59 23:59 23:59 Intake Total 50 Balance 50 Meds/Results Medications: Active Medications Generic Name Dose Route Start Last Admin Trade Name Freq PRN Reason Stop Dose Admin Albuterol 2 puff 12/04/23 00:44 Albuterol Sulfate (*Sp) Aerosol 1 Puff INHALATION Q4H PRN sob/wheezing Amlodipine Besylate 5 mg 12/04/23 09:00 Amlodipine Besylate 5 Mg Tablet PO DAILY [facility] Atorvastatin Calcium 10 mg 12/04/23 09:00 Atorvastatin 10 Mg Tablet PO DAILY [facility] Bupropion HCl 300 mg 12/04/23 09:00 Bupropion Hcl Xl (24 Hr) 150 Mg Tabcr PO QAM [facility] Calcium Carbonate 400 mg 12/04/23 09:00 Calcium Carbonate (Tums) 500 Mg (200 Mg Elemental) PO BID [facility] Cholestyramine Resin 4 gm 12/04/23 13:00 Cholestyramine (W/ Sugar) 4 Gm Powd.Pack PO DAILY@1300 [facility] Divalproex Sodium 250 mg 12/04/23 09:[address] 250 Mg Tabec PO Q12HR [facility] Famotidine 20 mg 12/04/23 09:00 Famotidine 20 Mg Tablet PO DAILY [facility] Ceftriaxone Sodium 1 gm in 50 mls @ 100 mls/hr 12/04/23 21:00 Rocephin 1 Gm/Ns 50 Ml IVPB Q24H [facility] Sodium Chloride 1,000 mls @ 75 mls/hr 12/04/23 00:50 12/04/23 01:25 Normal Saline Iv IV CONT 75 mls/hr .[id number] [facility] Administration Insulin Aspart 12 units 12/04/23 08:00 Insulin Aspart (*Bkc) 100 Units/Ml SUB-Q TIDWM [facility] Insulin Glargine 30 units 12/04/23 09:00 Insulin Glargine (*Bkc) 100 Units/Ml SUB-Q DAILY [facility] Isosorbide Mononitrate 30 mg 12/04/23 09:00 Isosorbide Mononitrate 30 Mg Tab.Er.24h PO DAILY [facility] Levothyroxine Sodium 150 mcg 12/04/23 06:30 12/04/23 05:17 Levothyroxine Sodium 150 Mcg Tablet PO 150 mcg DAILY@0630 [facility] Administration Methocarbamol 750 mg 12/04/23 00:44 Methocarbamol 750 Mg Tablet PO TID PRN muscle spasm Metoprolol Tartrate 25 mg 12/04/23 09:00 Metoprolol Tartrate 25 Mg Tablet PO Q12HR [facility] Miscellaneous Information 0 each 12/04/23 01:00 12/04/23 01:15 Brexpiprazole [Rexulti] 0.5 Mg Tablet- Nonformulary. Please Obtain A Home Supply If Possib XX 01/03/24 00:59 Not Given CLARIFY [facility] Nitroglycerin 0.4 mg 12/04/23 00:44 Nitroglycerin Sl 0.4 Mg Tablet SUBLINGUAL Q5M PRN Chest Pain Non-Formulary Medication 0.5 mg 12/04/23 09:00 Brexpiprazole [Rexulti] PO 01/03/24 08:59 DAILY [facility] Ondansetron HCl 4 mg 12/04/23 00:45 Ondansetron Inj 4 Mg/2 Ml Vial IV PUSH Q6H PRN Nausea And Vomiting Radiology Results: ITS Impressions Head CT 12/03/23 18:58 IMPRESSION: No acute intracranial process. Extensive paranasal sinus mucoperiosteal disease. Bilateral mastoid effusions and middle ear fluid, correlate for clinical findings of otomastoiditis. Chest X-Ray 12/03/23 19:03 IMPRESSION: No acute cardiopulmonary process. Cervical Spine CT 12/03/23 19:18 IMPRESSION: No acute fracture or traumatic malalignment in the cervical spine. Labs Labs: Laboratory Results - last 24 hr 12/03/23 12/03/23 12/04/23 19:32 19:56 07:44 WBC 10.4 H RBC 3.57 L Hgb 11.1 L Hct 33.6 L MCV 94.1 MCH 31.1 MCHC 33.0 RDW 13.7 Plt Count 326 MPV 10.3 Immature Gran % (Auto) 0.7 H Neut % (Auto) 69.1 Lymph % (Auto) 20.6 [place] % (Auto) 6.7 Eos % (Auto) 2.3 Baso % (Auto) 0.6 Lymph # (Auto) 2.14 [place] # (Auto) 0.7 H Eos # (Auto) 0.2 Baso # (Auto) 0.1 Abs Immat Gran (auto) 0.07 H Absolute Neuts (auto) 7.2 H Absolute Nucleated RBC 0.000 Nucleated RBC % 0.0 Sodium 136 L Potassium 5.4 H Chloride 101 Carbon Dioxide 25 Anion Gap 10 BUN 54 H Creatinine 2.70 H Estim Creat Clear Calc 16 Estimated GFR 17 L Glucose 272 H POC Capillary Glucose 234 H Calcium 9.3 Urine Color Yellow Urine Appearance Turbid H Urine pH 5.0 Ur Specific [place] 1.013 Urine Protein 3+ H Urine Glucose (UA) Negative Urine Ketones Negative Ur Blood (Man) Negative Urine Nitrate Positive H Urine Bilirubin Negative Urine Urobilinogen 0.2 Add Ur Microanalysis Reviewed Leukocyte Esterase Rfl 3+ H Urine RBC 0-2 Urine WBC >100 H Ur Squamous Epith Cells None seen Urine Bacteria 4+ Urine Casts 6-10 Quality VTE Prophylaxis VTE prophylaxis: pharmacologic ordered Hospitalist MIPS Advance Care Plan I have confirmed that the patient's Advanced Care Plan is present, code status is documented, or surrogate decision maker is listed in patient medical record.: Yes Medication Reconciliation I have utilized all available resources to obtain, update and review the patients current medications (includes all prescriptions, OTC, herbals, cannabis, and nutritional supplements).: Yes
[2023-12-04 08:22] LABS: Anion Gap 10 mmol/L (4-12); Blood Urea Nitrogen 53 mg/dL (7-17); Calcium 9.3 mg/dL (8.4-10.2); Carbon Dioxide 23 mmol/L (22-30); Chloride 105 mmol/L (98-107); Estimated CRCL calculation 16 ml/min; Estimated Glomerular Filt Rate 17; Glucose 234 mg/dL (65-110); Potassium 4.6 mmol/L (3.4-5.0); Sodium 138 mmol/L (137-145)
[2023-12-04] MEDS: amLODIPine BESYLATE 5 MG TABLET PO (08:47)
[2023-12-04] MEDS: buPROPion HCL XL (24 HR) 150 MG TABCR 300 MG PO (08:47)
[2023-12-04] MEDS: ATORVASTATIN 10 MG TABLET PO (08:47)
[2023-12-04] MEDS: DIVALPROEX SODIUM DR 250 MG TABEC PO ×2 (08:48→20:09)
[2023-12-04] MEDS: ISOSORBIDE MONONITRATE 30 MG TAB.ER.24H PO (08:48)
[2023-12-04] MEDS: METOPROLOL TARTRATE 25 MG TABLET PO ×2 (08:48→20:08)
[2023-12-04] MEDS: FAMOTIDINE 20 MG TABLET PO (08:52)
[2023-12-04] MEDS: hydrALAZINE 10 MG TABLET PO ×2 (08:53→13:24)
[2023-12-04] MEDS: INSULIN GLARGINE (*BKC) 100 UNITS/ML 30 UNITS SUB-Q (09:10)
[2023-12-04] MEDS: INSULIN ASPART (*BKC) 100 UNITS/ML SUB-Q ×2 (09:25→13:17)
[2023-12-04] MEDS: HEPARIN SODIUM 5,000 UNITS/ML VIAL 5000 UNITS SUB-Q ×2 (09:27→20:10)
--- NOTE | 2023-12-04 12:45 | PHAR ---
HOME MED: BREXPIPRAZOLE (REXULTI) 0.5 MG TABLET, TAKE 1 TABLET BY MOUTH DAILY, VERIFIED IN PHARMACY 12/04/2023. Drug Name: Rexulti Ingredients: Brexpiprazole -- 0.5 MG Related Documents: DRUGDEX Evaluations - BREXPIPRAZOLE Color: Light [place] Shape: [place] Imprint: BRX 0.5 Form: Oral Tablet --MICROMEDEX
[2023-12-04 13:14] LABS: Glucose Point of Care 229 mg/dl (65-105)
[2023-12-04] MEDS: BREXPIPRAZOLE 0.5 MG 0.5 EACH PO (13:15)
--- NOTE | 2023-12-04 14:00 | PC.NURSE ---
Petr Grubbs ROLL OUT MANAGER notified of patient starting to get aggressive and combative trying to get out of bed. Oatient confused and not easy to redirect. She is also trying to pull iv out.
[2023-12-04] MEDS: OLANZapine 10 MG INJ VIAL 5 MG IM (14:48)
[2023-12-04 17:16] LABS: Glucose Point of Care 173 mg/dl (65-105)
[2023-12-04 20:08] LABS: Glucose Point of Care 110 mg/dl (65-105)
[2023-12-04] MEDS: ONDANSETRON INJ 4 MG/2 ML VIAL IV PUSH (20:10)
[2023-12-04] MEDS: methocarbamoL 750 MG TABLET PO (20:10)
[2023-12-05] MEDS: SODIUM CHLORIDE 0.9% IV 1,000 ML 75 ML IV CONT (02:30)
[2023-12-05 05:17] VITALS: BP 136/60; PULSE 63; RESP 14; TEMP 36.9; O2SAT 97
[2023-12-05 06:35] LABS: Hematocrit 32.6 % (37.0-47.0); Hemoglobin 10.6 g/dL (12.0-15.0); Mean Corpuscular HGB Conc 32.5 g/dl (32-36); Mean Corpuscular Hemoglobin 30.8 pg (26-34); Mean Corpuscular Volume 94.8 fl (80-100); Mean Platelet Volume 10.2 fl (7.4-10.4); Platelet Count Result 298 k/mm3 (150-375); Red Blood Count 3.44 M/mm3 (4.2-5.4); Red Cell Distribution Width 14.1 % (11.5-14.5); White Blood Count 9.2 K/mm3 (4.5-10.0)
[2023-12-05 06:43] LABS: Anion Gap 6 mmol/L (4-12); Blood Urea Nitrogen 46 mg/dL (7-17); Carbon Dioxide 24 mmol/L (22-30); Chloride 112 mmol/L (98-107); Estimated CRCL calculation 17 ml/min; Estimated Glomerular Filt Rate 18; Glucose 76 mg/dL (65-110); Potassium 4.4 mmol/L (3.4-5.0); Sodium 142 mmol/L (137-145)
[2023-12-05 06:55] LABS: Parathyroid Intact 48.9 pg/mL (14.5-75.2)
--- NOTE | 2023-12-05 07:44 | P.PNIM_ITS ---
Progress Note: A&P Assessment and Plan (1) Fall: Code(s): W19.XXXA - Unspecified fall, initial encounter Status: Acute Assessment and Plan: Per chart review, the skilled nursing states that the patient fell while transferring from bed to wheelchair. This was unwitnessed and nursing staff was unsure about LOC or her hitting her head. - Head CT: No acute intracranial process. Extensive paranasal sinus mucoperi osteal disease. Bilateral mastoid effusions and middle ear fluid, correlate for clinical findings of otomastoiditis. - Chest XR: No acute cardiopulmonary process. - C spine CT: No acute fracture or traumatic malalignment in the cervical spine. - PT/OT (2) UTI (urinary tract infection): Qualifiers: Hematuria presence: without hematuria Urinary tract infection type: acute cystitis Qualified Code(s): N30.00 - Acute cystitis without hematuria Code(s): N39.0 - Urinary tract infection, site not specified Status: Acute Assessment and Plan: - UA: turbid appearance, 3+ protein, positive nitrates, 3+ leukocytes, >100 WBC, 4+ bacteria - UC obtained on 12/02: pending - No previous micro to be reviewed - started on Rocephin on 12/03 (3) Acute kidney injury superimposed on CKD: Code(s): N17.9 - Acute kidney failure, unspecified; N18.9 - Chronic kidney disease, unspecified Status: Acute Assessment and Plan: Undetermined CKD status or prior records available for review. Repeat labs at 12 hours without significant change, will continue IVF at current rate with close attention to volume status. With the significant diuretic regimen jessica may be iatrogenic. - Renal u/s: Normal kidney sizes. No hydronephrosis. - PTH 48.[address] Venegas who is covering for patients PCP Dr. Mead who is unsure of patients baseline kidney function as she is not currently at a computer. She states she is in the office tomorrow and will be able to answer more questions if she gets a phone call. Her number is [phone]. (4) Hypertension: Code(s): I10 - Essential (primary) hypertension Status: Acute Assessment and Plan: Chronic. Home medications: Amlodipine 5 mg daily, Lisinopril 40 mg daily, Metoprolol 25 mg BID and Lasix 50 mg daily - Continue Amlodipine 5 mg daily and Metoprolol 25 mg BID - Hold lisinopril and diuretics. Resume as JESSICA improves - Started on hydralazine 10 mg QID (5) Type 2 diabetes mellitus: Code(s): E11.9 - Type 2 diabetes mellitus without complications Status: Acute Assessment and Plan: - hypoglycemia protocol - POC blood glucose ACHS - home medication - lantus 30 units, lispro 12 units TIDWM, linagliptin 5 mg, metformin 500 mg - correct regimen ordered - lantus 30 units daily and low dose TIDWM - Hold mealtime 12 units currently with very poor intake noted this am, may need reintroduced if intake improves. (6) Dementia: Code(s): F03.90 - Unspecified dementia, unspecified severity, without behavioral disturbance, psychotic disturbance, mood disturbance, and anxiety Status: Acute Assessment and Plan: - Known dementia, history of combativeness. - Currently in restraints which will continue for the patient's safety. Close monitoring and removal if safely able to tolerate. Time Spent With Patient Time with patient: 25 - 35 minutes Subjective Date/time seen: 12/05/23 07:44 Interval history: 83-year-old female with a history of COPD, MDD, hypertension, cardiomegaly, hypothyroidism, type 2 diabetes, 3rd, CKD stage 3, hyperlipidemia, thrombocytosis presents to the emergency department via EMS from local skilled nursing for a fall. Patient is AOx0 not answering questions lying in bed with sitter at bedside. She is no longer in restraints. Patient is a bit more lethargic likely secondary to the Seroquel that she had recently received. She remains on rocephin for UTI. Discussed patient with her daughter/POAshleigh Lima who states patient is at her baseline mentation of AOx0. Had an in depth conversation with her about what this hospitalization will look like and the possibility of hospice given that patient is refusing her meds periodically. She states that if her mothers combativeness does not improve with UTI treatment she would likely consider hospice. Discussed patient with her personal caregiver at [facility] who states that the patient is typically alert but not really oriented. She states that she will occasionally know her daughters name, but never quite her own. Called Dr. Venegas who is covering for patients PCP Dr. Mead who is unsure of patients baseline kidney function as she is not currently at a computer. She states she is in the office tomorrow and will be able to answer more questions if she gets a phone call. Her number is [phone]. Review of Systems Review of Systems: ROS unobtainable: Yes unobtainable due to mental status Exam Narrative: AF HR 63 RR 14 SpO2 97 BP 136/60 General: female in no acute respiratory distress who is nontoxic appearing, lying semi recumbent in bed. HEENT: Normocephalic. Atraumatic. Extraocular movement intact. Sclera clear and anicteric. No facial asymmetry. Chest: Lungs are clear to auscultation bilaterally. With slight audible inspiratory wheeze. No crackles. CV: Heart was regular rate and rhythm. S1-S2. No murmurs, gallops, or rubs. Abd: Abdomen was soft. Nontender. Nondistended. Positive bowel sounds. No organomegaly or masses. Ext: No clubbing, cyanosis, or edema. 2+ DP pulses bilaterally. Neuro: Patient is alert and oriented x0. Not answering questions. Objective Data Vital Signs Vital Signs: Vital Signs - 24 hr 12/04/23 08:00 12/04/23 08:43 12/04/23 08:48 Temperature Pulse Rate 62 Respiratory Rate Blood Pressure Pulse Oximetry 97 98 Oxygen Delivery Room Air Room Air Fraction of Inspired Oxygen 21 12/04/23 08:56 12/04/23 13:59 12/04/23 15:35 Temperature 98.4 F 98.4 F Pulse Rate 60 71 Respiratory Rate 21 H 22 H Blood Pressure 167/82 H 111/88 Pulse Oximetry 90 98 Oxygen Delivery Fraction of Inspired Oxygen 12/04/23 16:34 12/04/23 17:33 12/04/23 20:08 Temperature 98.1 F 97.9 F Pulse Rate 67 70 92 Respiratory Rate 22 H 20 Blood Pressure 146/102 H 105/62 Pulse Oximetry 100 99 Oxygen Delivery Fraction of Inspired Oxygen 12/04/23 20:24 12/04/23 20:00 12/05/23 05:17 Temperature 98 F 98.5 F Pulse Rate 92 63 Respiratory Rate 18 14 Blood Pressure 103/59 L 136/60 Pulse Oximetry 100 97 Oxygen Delivery Room Air Fraction of Inspired Oxygen Intake/Output Intake/Output: Intake & Output 12/02/23 12/03/23 12/04/23 12/05/23 23:59 23:59 23:59 23:59 Intake Total 50 1071.3 1030 Output Total 375 500 Balance 50 696.3 530 Meds/Results Medications: Active Medications Generic Name Dose Route Start Last Admin Trade Name Freq PRN Reason Stop Dose Admin Albuterol 2 puff 12/04/23 00:44 Albuterol Sulfate (*Sp) Aerosol 1 Puff INHALATION Q4H PRN sob/wheezing Amlodipine Besylate 5 mg 12/04/23 09:00 12/04/23 08:47 Amlodipine Besylate 5 Mg Tablet PO 5 mg DAILY FRANKIE Administration Atorvastatin Calcium 10 mg 12/04/23 09:00 12/04/23 08:47 Atorvastatin 10 Mg Tablet PO 10 mg DAILY FRANKIE Administration Bupropion HCl 300 mg 12/04/23 09:00 12/04/23 08:47 Bupropion Hcl Xl (24 Hr) 150 Mg Tabcr PO 300 mg QAM FRANKIE Administration Calcium Carbonate 400 mg 12/04/23 09:00 12/04/23 16:37 Calcium Carbonate (Tums) 500 Mg (200 Mg Elemental) PO Not Given BID [facility] Cholestyramine Resin 4 gm 12/04/23 13:00 12/04/23 13:16 Cholestyramine (W/ Sugar) 4 Gm Powd.Pack PO Not Given DAILY@1300 [facility] Divalproex Sodium 250 mg 12/04/23 09:00 12/04/23 20:[address] 250 Mg Tabec PO 250 mg Q12HR FRANKIE Administration Famotidine 20 mg 12/04/23 09:00 12/04/23 08:52 Famotidine 20 Mg Tablet PO 20 mg DAILY [facility] Administration Heparin Sodium (Porcine) 5,000 units 12/04/23 09:00 12/04/23 20:10 Heparin Sodium 5,000 Units/Ml Vial SUB-Q 5,000 units Q12HR FRANKIE Administration Hydralazine HCl 10 mg 12/04/23 09:00 12/04/23 20:11 Hydralazine 10 Mg Tablet PO Not Given QID FRANKIE Ceftriaxone Sodium 1 gm in 50 mls @ 100 mls/hr 12/04/23 21:00 12/04/23 20:38 Rocephin 1 Gm/Ns 50 Ml IVPB Infused Q24H [facility] Infusion Sodium Chloride 1,000 mls @ 75 mls/hr 12/04/23 00:50 12/05/23 02:30 Normal Saline Iv IV CONT 75 mls/hr .[id number] FRANKIE Administration Insulin Aspart 3 - 6 units 12/04/23 08:47 12/04/23 17:15 Insulin Aspart (*Bkc) 100 Units/Ml SUB-Q Not Given TIDWM [facility] Protocol Insulin Glargine 30 units 12/04/23 09:00 12/04/23 09:10 Insulin Glargine (*Bkc) 100 Units/Ml SUB-Q 30 units DAILY FRANKIE Administration Isosorbide Mononitrate 30 mg 12/04/23 09:00 12/04/23 08:48 Isosorbide Mononitrate 30 Mg Tab.Er.24h PO 30 mg DAILY FRANKIE Administration Levothyroxine Sodium 150 mcg 12/04/23 06:30 12/05/23 06:28 Levothyroxine Sodium 150 Mcg Tablet PO Not Given DAILY@0630 [facility] Methocarbamol 750 mg 12/04/23 00:44 12/04/23 20:10 Methocarbamol 750 Mg Tablet PO 750 mg TID PRN Administration muscle spasm Metoprolol Tartrate 25 mg 12/04/23 09:00 12/04/23 20:08 Metoprolol Tartrate 25 Mg Tablet PO 25 mg Q12HR FRANKIE Administration Nitroglycerin 0.4 mg 12/04/23 00:44 Nitroglycerin Sl 0.4 Mg Tablet SUBLINGUAL Q5M PRN Chest Pain Home Med ( 0.5 mg 12/04/23 12:45 12/04/23 13:15 Brexpiprazole [ PO 01/03/24 12:44 0.5 mg Rexulti] 0.5 Mg DAILY [facility] Administration Tablet) Ondansetron HCl 4 mg 12/04/23 00:45 12/04/23 20:10 Ondansetron Inj 4 Mg/2 Ml Vial IV PUSH 4 mg Q6H PRN Administration Nausea And Vomiting Quetiapine Fumarate 100 mg 12/04/23 21:00 12/04/23 21:33 Quetiapine Fumarate 100 Mg Tablet PO Not Given HS [facility] Quetiapine Fumarate 25 mg 12/05/23 09:00 Quetiapine Fumarate 25 Mg Tablet PO QAM [facility] Radiology Results: ITS Impressions Head CT 12/03/23 18:58 IMPRESSION: No acute intracranial process. Extensive paranasal sinus mucoperiosteal disease. Bilateral mastoid effusions and middle ear fluid, correlate for clinical findings of otomastoiditis. Chest X-Ray 12/03/23 19:03 IMPRESSION: No acute cardiopulmonary process. Cervical Spine CT 12/03/23 19:18 IMPRESSION: No acute fracture or traumatic malalignment in the cervical spine. Labs Labs: Laboratory Results - last 24 hr 12/04/23 12/04/23 12/04/23 07:44 08:00 13:07 WBC RBC Hgb Hct MCV MCH MCHC RDW Plt Count MPV Sodium 138 Potassium 4.6 Chloride 105 Carbon Dioxide 23 Anion Gap 10 BUN 53 H Creatinine 2.70 H Estim Creat Clear Calc 16 Estimated GFR 17 L Glucose 234 H POC Capillary Glucose 234 H 229 H Calcium 9.3 PTH Intact 12/04/23 12/04/23 12/05/23 17:13 20:00 06:25 WBC 9.2 RBC 3.44 L Hgb 10.6 L Hct 32.6 L MCV 94.8 MCH 30.8 MCHC 32.5 RDW 14.1 Plt Count 298 MPV 10.2 Sodium 142 Potassium 4.4 Chloride 112 H Carbon Dioxide 24 Anion Gap 6 BUN 46 H Creatinine 2.60 H Estim Creat Clear Calc 17 Estimated GFR 18 L Glucose 76 POC Capillary Glucose 173 H 110 H Calcium 9.0 PTH Intact 48.9 Quality VTE Prophylaxis VTE prophylaxis: pharmacologic ordered
[2023-12-05 07:51] LABS: Glucose Point of Care 78 mg/dl (65-105)
[2023-12-05 08:00] VITALS: O2SAT 97
[2023-12-05] MEDS: QUEtiapine FUMARATE 25 MG TABLET PO (09:57)
[2023-12-05] MEDS: BREXPIPRAZOLE 0.5 MG 0.5 EACH PO (09:59)
[2023-12-05] MEDS: DIVALPROEX SODIUM DR 250 MG TABEC PO (10:02)
[2023-12-05] MEDS: HEPARIN SODIUM 5,000 UNITS/ML VIAL 5000 UNITS SUB-Q ×2 (10:04→20:53)
[2023-12-05 11:26] LABS: Glucose Point of Care 145 mg/dl (65-105)
--- NOTE | 2023-12-05 11:28 | PC.NURSE ---
Brigette ASENCIO notified of glucose 78 and holding lantus due to poor appetite and patient had some audible wheezes and turned ivf off.
[2023-12-05] MEDS: hydrALAZINE 10 MG TABLET PO (11:45)
[2023-12-05] MEDS: amLODIPine BESYLATE 5 MG TABLET PO (11:45)
--- NOTE | 2023-12-05 12:55 | PC.NURSE ---
Brigette ASENCIO notified of patient refusing meds.
[2023-12-05 14:00] VITALS: PULSE 101; RESP 12; TEMP 35.7; O2SAT 90
[2023-12-05 15:30] VITALS: BP 134/85
[2023-12-05 16:43] LABS: Glucose Point of Care 161 mg/dl (65-105)
[2023-12-05 20:00] VITALS: PULSE 101; RESP 12; O2SAT 90
[2023-12-05 21:00] VITALS: PULSE 70; RESP 18; TEMP 36.7; O2SAT 99
[2023-12-05 21:43] LABS: Glucose Point of Care 144 mg/dl (65-105)
[2023-12-06 05:20] VITALS: BP 94/58; PULSE 62; RESP 18; TEMP 36.3; O2SAT 100
[2023-12-06 07:39] LABS: Glucose Point of Care 101 mg/dl (65-105)
[2023-12-06 08:00] VITALS: O2SAT 100
[2023-12-06 09:03] VITALS: BP 145/50; O2SAT 100
--- NOTE | 2023-12-06 09:03 | PCOTNOTE ---
OT attempted 8:50. Pt unable to be aroused. RN advised OT to come back later.
--- NOTE | 2023-12-06 09:09 | PCPTNOTE ---
Attempted PT evaluation, pt unarousable due to medication at this time. Will follow.
--- NOTE | 2023-12-06 09:45 | P.PNIM_ITS ---
Progress Note: A&P Assessment and Plan (1) Fall: Code(s): W19.XXXA - Unspecified fall, initial encounter Status: Acute Assessment and Plan: Per chart review, the usp states that the patient fell while transferring from bed to wheelchair. This was unwitnessed and nursing staff was unsure about LOC or her hitting her head. - Head CT: No acute intracranial process. Extensive paranasal sinus mucoperi osteal disease. Bilateral mastoid effusions and middle ear fluid, correlate for clinical findings of otomastoiditis. - Chest XR: No acute cardiopulmonary process. - C spine CT: No acute fracture or traumatic malalignment in the cervical spine. - PT/OT (2) UTI (urinary tract infection): Qualifiers: Hematuria presence: without hematuria Urinary tract infection type: acute cystitis Qualified Code(s): N30.00 - Acute cystitis without hematuria Code(s): N39.0 - Urinary tract infection, site not specified Status: Acute Assessment and Plan: - UA: turbid appearance, 3+ protein, positive nitrates, 3+ leukocytes, >100 WBC, 4+ bacteria - UC obtained on 12/02: pending - No previous micro to be reviewed - started on Rocephin on 12/03 - downgrade antibiotics to PO- if stable/tolerated well- anticipate discharge home tomorrow (3) Acute kidney injury superimposed on CKD: Code(s): N17.9 - Acute kidney failure, unspecified; N18.9 - Chronic kidney disease, unspecified Status: Acute Assessment and Plan: Undetermined CKD status or prior records available for review. Repeat labs at 12 hours without significant change, will continue IVF at current rate with close attention to volume status. With the significant diuretic regimen jessica may be iatrogenic. - Renal u/s: Normal kidney sizes. No hydronephrosis. - PTH 48.[address] Venegas who is covering for patients PCP Dr. Mead who is unsure of patients baseline kidney function as she is not currently at a computer. She states she is in the office tomorrow and will be able to answer more questions if she gets a phone call. Her number is [phone]. (4) Hypertension: Code(s): I10 - Essential (primary) hypertension Status: Acute Assessment and Plan: Chronic. Home medications: Amlodipine 5 mg daily, Lisinopril 40 mg daily, Metoprolol 25 mg BID and Lasix 50 mg daily - Continue Amlodipine 5 mg daily and Metoprolol 25 mg BID - Hold lisinopril and diuretics. Resume as JESSICA improves - Started on hydralazine 10 mg QID (5) Type 2 diabetes mellitus: Code(s): E11.9 - Type 2 diabetes mellitus without complications Status: Acute Assessment and Plan: - hypoglycemia protocol - POC blood glucose ACHS - home medication - lantus 30 units, lispro 12 units TIDWM, linagliptin 5 mg, metformin 500 mg - correct regimen ordered - lantus 30 units daily and low dose TIDWM - Hold mealtime 12 units currently with very poor intake noted this am, may need reintroduced if intake improves. - BS reviewed (6) Dementia: Code(s): F03.90 - Unspecified dementia, unspecified severity, without behavioral disturbance, psychotic disturbance, mood disturbance, and anxiety Status: Acute Assessment and Plan: - Known dementia, history of combativeness. - Currently in restraints which will continue for the patient's safety. Close monitoring and removal if safely able to tolerate. Time Spent With Patient Time with patient: Greater than 35 minutes Subjective Date/time seen: 12/06/23 09:45 Interval history: 83-year-old female with a history of COPD, MDD, hypertension, cardiomegaly, hypothyroidism, type 2 diabetes, 3rd, CKD stage 3, hyperlipidemia, thrombocytosis presents to the emergency department via EMS from local [facility] for a fall. Patient is AOx0 not answering questions lying in bed with sitter at bedside. She is no longer in restraints. Patient is a bit more lethargic likely secondary to the Seroquel that she had recently received. She remains on rocephin for UTI. Discussed patient with her daughter/POAshleigh Lima who states patient is at her baseline mentation of AOx0. Had an in depth conversation with her about what this hospitalization will look like and the possibility of hospice given that patient is refusing her meds periodically. She states that if her mothers combativeness does not improve with UTI treatment she would likely consider hospice. Discussed patient with her career based intervention coordinator at [facility] who states that the patient is typically alert but not really oriented. She states that she will occasionally know her daughters name, but never quite her own. Called Dr. Venegas who is covering for patients PCP Dr. Mead who is unsure of patients baseline kidney function as she is not currently at a computer. She states she is in the office tomorrow and will be able to answer more questions if she gets a phone call. Her number is [phone]. 12/05- pt is seen and examined. She is alert, eating- daughter at the bedside. Pt is in better mood, calm and no behavioral issues noted. Review of Systems Review of Systems: patient unable to cooperate with history- baseline confused ROS unobtainable: Yes unobtainable due to medical condition ( CONFUSION) and unobtainable due to mental status Exam Narrative: General: female in no acute respiratory distress who is nontoxic appearing, lying semi recumbent in bed. HEENT: Normocephalic. Atraumatic. Extraocular movement intact. Sclera clear and anicteric. No facial asymmetry. Chest: Lungs are clear to auscultation bilaterally. With slight audible inspiratory wheeze. No crackles. CV: Heart was regular rate and rhythm. S1-S2. No murmurs, gallops, or rubs. Abd: Abdomen was soft. Nontender. Nondistended. Positive bowel sounds. No organomegaly or masses. Ext: No clubbing, cyanosis, or edema. 2+ DP pulses bilaterally. Neuro: Patient is alert and oriented x0. baseline Const: General: comfortable, no acute distress, well developed, alert, awake and average body habitus Nutritional Appearance: average body habitus Orientation/consciousness: oriented to person Other: well-appearing HENMT: Head: normal to inspection, normocephalic and atraumatic Ears: hearing grossly normal bilaterally Face/Nose/Sinus: normal facial exam Face and sinus: normal facial exam Eyes: General: appearance normal, both eyes and all related structures Pupils: Equal, round and reactive pupils present EOM: EOMs intact bilaterally Neck: Neck: full ROM, no lymphadenopathy and no JVD Thyroid: thyroid normal Lymphatic: no lymphadenopathy noted Resp: Effort & Inspection: normal respiratory effort and able to speak in complete sentences Auscultation: clear to auscultation bilaterally Cardio: Jugular venous distension: no JVD Rate: regular rate Rhythm: regular rhythm Heart sounds: S1 normal heart sound present and S2 normal heart sound present : General: Yes deferred Skin: Rashes: no rashes Wounds: no wounds Neuro: General: oriented to person, no focal motor deficits, CN's II-XI intact bilaterally and Unable to assess gait Cranial nerves: Yes CN's II-XII intact bilaterally and Yes Equal, round and reactive pupils present Cognition (Neuro): abnormal cognition ( patient is only oriented to person) Speech: normal speech Gait exam (Neuro): Unable to assess gait Motor exam (neuro): 5/5 motor strength present throughout Extrem: General: normal to inspection, full ROM, no joint enlargement and no pedal edema Objective Data Vital Signs Vital Signs: Vital Signs - 24 hr 12/05/23 14:00 12/05/23 15:30 12/05/23 20:00 Temperature 96.3 F L Pulse Rate 101 H 101 H Respiratory Rate 12 12 Blood Pressure 134/85 Pulse Oximetry 90 90 Oxygen Delivery Room Air Fraction of Inspired Oxygen 21 12/05/23 21:00 12/06/23 05:20 12/06/23 09:03 Temperature 98.1 F 97.3 F L Pulse Rate 70 62 Respiratory Rate 18 18 Blood Pressure 94/58 L 145/50 H Pulse Oximetry 99 100 100 Oxygen Delivery Fraction of Inspired Oxygen Intake/Output Intake/Output: Intake & Output 12/03/23 12/04/23 12/05/23 12/06/23 23:59 23:59 23:59 23:59 Intake Total 50 1071.3 1198 50 Output Total 375 1300 200 Balance 50 696.3 -102 -150 Meds/Results Medications: Active Medications Generic Name Dose Route Start Last Admin Trade Name Freq PRN Reason Stop Dose Admin Albuterol 2 puff 12/04/23 00:44 Albuterol Sulfate (*Sp) Aerosol 1 Puff INHALATION Q4H PRN sob/wheezing Amlodipine Besylate 5 mg 12/04/23 09:00 12/05/23 11:45 Amlodipine Besylate 5 Mg Tablet PO 5 mg DAILY FRANKIE Administration Atorvastatin Calcium 10 mg 12/04/23 09:00 12/05/23 15:50 Atorvastatin 10 Mg Tablet PO Not Given DAILY FRANKIE Bupropion HCl 300 mg 12/04/23 09:00 12/05/23 15:50 Bupropion Hcl Xl (24 Hr) 150 Mg Tabcr PO Not Given QAM FRANKIE Calcium Carbonate 400 mg 12/04/23 09:00 12/05/23 16:24 Calcium Carbonate (Tums) 500 Mg (200 Mg Elemental) PO Not Given BID [facility] Cholestyramine Resin 4 gm 12/04/23 13:00 12/05/23 12:57 Cholestyramine (W/ Sugar) 4 Gm Powd.Pack PO Not Given DAILY@1300 [facility] Divalproex Sodium 250 mg 12/04/23 09:00 12/05/23 23:[address] 250 Mg Tabec PO Not Given Q12HR [facility] Famotidine 20 mg 12/04/23 09:00 12/05/23 15:50 Famotidine 20 Mg Tablet PO Not Given DAILY [facility] Heparin Sodium (Porcine) 5,000 units 12/04/23 09:00 12/05/23 20:53 Heparin Sodium 5,000 Units/Ml Vial SUB-Q 5,000 units Q12HR [facility] Administration Hydralazine HCl 10 mg 12/04/23 09:00 12/05/23 23:50 Hydralazine 10 Mg Tablet PO Not Given QID [facility] Ceftriaxone Sodium 1 gm in 50 mls @ 100 mls/hr 12/04/23 21:00 12/05/23 21:23 Rocephin 1 Gm/Ns 50 Ml IVPB Infused Q24H [facility] Infusion Insulin Aspart 3 - 6 units 12/04/23 08:47 12/06/23 08:59 Insulin Aspart (*Bkc) 100 Units/Ml SUB-Q Not Given TIDWM [facility] Protocol Insulin Glargine 30 units 12/04/23 09:00 12/05/23 11:27 Insulin Glargine (*Bkc) 100 Units/Ml SUB-Q Not Given DAILY [facility] Isosorbide Mononitrate 30 mg 12/04/23 09:00 12/05/23 15:50 Isosorbide Mononitrate 30 Mg Tab.Er.24h PO Not Given DAILY [facility] Levothyroxine Sodium 150 mcg 12/04/23 06:30 12/06/23 05:34 Levothyroxine Sodium 150 Mcg Tablet PO Not Given DAILY@0630 [facility] Methocarbamol 750 mg 12/04/23 00:44 12/04/23 20:10 Methocarbamol 750 Mg Tablet PO 750 mg TID PRN Administration muscle spasm Metoprolol Tartrate 25 mg 12/04/23 09:00 12/05/23 23:50 Metoprolol Tartrate 25 Mg Tablet PO Not Given Q12HR [facility] Nitroglycerin 0.4 mg 12/04/23 00:44 Nitroglycerin Sl 0.4 Mg Tablet SUBLINGUAL Q5M PRN Chest Pain Home Med ( 0.5 mg 12/04/23 12:45 12/05/23 09:59 Brexpiprazole [ PO 01/03/24 12:44 0.5 mg Rexulti] 0.5 Mg DAILY FRANKIE Administration Tablet) Ondansetron HCl 4 mg 12/04/23 00:45 12/04/23 20:10 Ondansetron Inj 4 Mg/2 Ml Vial IV PUSH 4 mg Q6H PRN Administration Nausea And Vomiting Quetiapine Fumarate 25 mg 12/05/23 21:00 12/05/23 23:50 Quetiapine Fumarate 25 Mg Tablet PO Not Given HS FRANKIE Quetiapine Fumarate 12.5 mg 12/06/23 09:00 Quetiapine Fumarate 25 Mg Tablet PO QAM [facility] Radiology Results: ITS Impressions Head CT 12/03/23 18:58 IMPRESSION: No acute intracranial process. Extensive paranasal sinus mucoperiosteal disease. Bilateral mastoid effusions and middle ear fluid, correlate for clinical findings of otomastoiditis. Cervical Spine CT 12/03/23 19:18 IMPRESSION: No acute fracture or traumatic malalignment in the cervical spine. Chest X-Ray 12/05/23 12:49 IMPRESSION: Limited evaluation of the chest secondary to patient rotation and moderate kyphosis demonstrates mild pulmonary vascular congestion, without focal infiltrate or significant pleural effusion. Renal Ultrasound 12/05/23 15:35 IMPRESSION: 1. Normal kidney sizes. No hydronephrosis. Labs Labs: Laboratory Results - last 24 hr 12/05/23 12/05/23 12/05/23 11:18 16:40 20:56 POC Capillary Glucose 145 H 161 H 144 H 12/06/23 07:35 POC Capillary Glucose 101 Quality VTE Prophylaxis VTE prophylaxis: pharmacologic ordered
[2023-12-06 11:34] LABS: Glucose Point of Care 106 mg/dl (65-105)
[2023-12-06] MEDS: QUEtiapine FUMARATE 25 MG TABLET 12.5 MG PO (12:28)
[2023-12-06] MEDS: hydrALAZINE 10 MG TABLET PO ×2 (12:29→16:54)
[2023-12-06] MEDS: amLODIPine BESYLATE 5 MG TABLET PO (12:29)
[2023-12-06] MEDS: DIVALPROEX SODIUM DR 250 MG TABEC PO (12:31)
[2023-12-06] MEDS: buPROPion HCL XL (24 HR) 150 MG TABCR 300 MG PO (12:31)
[2023-12-06] MEDS: ISOSORBIDE MONONITRATE 30 MG TAB.ER.24H PO (12:31)
[2023-12-06] MEDS: ATORVASTATIN 10 MG TABLET PO (12:31)
[2023-12-06] MEDS: FAMOTIDINE 20 MG TABLET PO (12:31)
[2023-12-06 12:32] VITALS: PULSE 70
[2023-12-06] MEDS: METOPROLOL TARTRATE 25 MG TABLET PO (12:32)
--- NOTE | 2023-12-06 13:55 | PCOTNOTE ---
Pt. at baseline. Cancelation of OT orders
[2023-12-06 14:00] VITALS: BP 118/59; PULSE 67; RESP 20; TEMP 36.1; O2SAT 100
[2023-12-06 16:34] LABS: Glucose Point of Care 284 mg/dl (65-105)
[2023-12-06] MEDS: INSULIN ASPART (*BKC) 100 UNITS/ML SUB-Q (16:57)
[2023-12-06] MEDS: QUEtiapine FUMARATE 25 MG TABLET PO (20:03)
[2023-12-06 22:00] VITALS: BP 165/80; PULSE 58; RESP 20; TEMP 36.2; O2SAT 98
[2023-12-06] MEDS: LORazepam INJ (*CRX) 2 MG/ML VIAL 1 MG IV PUSH (23:32)
[2023-12-07 05:46] VITALS: BP 149/79; PULSE 59; RESP 18; TEMP 36.1; O2SAT 100
[2023-12-07 08:29] LABS: Glucose Point of Care 343 mg/dl (65-105)
[2023-12-07] MEDS: INSULIN GLARGINE (*BKC) 100 UNITS/ML 30 UNITS SUB-Q (08:53)
[2023-12-07] MEDS: INSULIN ASPART (*BKC) 100 UNITS/ML SUB-Q ×2 (08:53→12:04)
[2023-12-07] MEDS: CALCIUM CARBONATE (TUMS) 500 MG (200 MG ELEMENTAL) 400 MG PO (08:54)
[2023-12-07] MEDS: QUEtiapine FUMARATE 25 MG TABLET 12.5 MG PO (08:55)
[2023-12-07] MEDS: FAMOTIDINE 20 MG TABLET PO (08:55)
[2023-12-07 08:56] VITALS: PULSE 59
[2023-12-07] MEDS: buPROPion HCL XL (24 HR) 150 MG TABCR 300 MG PO (08:56)
[2023-12-07] MEDS: METOPROLOL TARTRATE 25 MG TABLET PO (08:56)
[2023-12-07] MEDS: DIVALPROEX SODIUM DR 250 MG TABEC PO (08:57)
[2023-12-07] MEDS: ATORVASTATIN 10 MG TABLET PO (08:57)
[2023-12-07] MEDS: ISOSORBIDE MONONITRATE 30 MG TAB.ER.24H PO (08:57)
[2023-12-07] MEDS: hydrALAZINE 10 MG TABLET PO ×2 (08:58→12:05)
[2023-12-07] MEDS: amLODIPine BESYLATE 5 MG TABLET PO (08:58)
[2023-12-07] MEDS: HEPARIN SODIUM 5,000 UNITS/ML VIAL 5000 UNITS SUB-Q (09:03)
[2023-12-07 12:05] LABS: Glucose Point of Care 286 mg/dl (65-105)
--- NOTE | 2023-12-07 13:32 | P.DS_ITS ---
DS: Admitting Diagnosis Discharge Date 12/06 Admitting Diagnosis fall DS: Discharge Diagnosis Discharge Diagnosis (1) Fall: Code(s): W19.XXXA - Unspecified fall, initial encounter Status: Acute Assessment and Plan: Per chart review, the fdc states that the patient fell while t ransferring from bed to wheelchair. This was unwitnessed and nursing staff was unsure about LOC or her hitting her head. - Head CT: No acute intracranial process. Extensive paranasal sinus mucoperio steal disease. Bilateral mastoid effusions and middle ear fluid, correlate for clinical findings of otomastoiditis. - Chest XR: No acute cardiopulmonary process. - C spine CT: No acute fracture or traumatic malalignment in the cervical spine. - PT/OT (2) UTI (urinary tract infection): Qualifiers: Hematuria presence: without hematuria Urinary tract infection type: acute cystitis Qualified Code(s): N30.00 - Acute cystitis without hematuria Code(s): N39.0 - Urinary tract infection, site not specified Status: Acute Assessment and Plan: - UA: turbid appearance, 3+ protein, positive nitrates, 3+ leukocytes, >100 WBC, 4+ bacteria - UC obtained on 12/02: pending - No previous micro to be reviewed - started on Rocephin on 12/03 - downgrade antibiotics to PO- if stable/tolerated well- anticipate discharge home tomorrow (3) Acute kidney injury superimposed on CKD: Code(s): N17.9 - Acute kidney failure, unspecified; N18.9 - Chronic kidney disease, unspecified Status: Acute Assessment and Plan: Undetermined CKD status or prior records available for review. Repeat labs at 12 hours without significant change, will continue IVF at current rate with close attention to volume status. With the significant diuretic regimen jessica may be iatrogenic. - Renal u/s: Normal kidney sizes. No hydronephrosis. - PTH 48.[address] Venegas who is covering for patients PCP Dr. Mead who is unsure of patients baseline kidney function as she is not currently at a computer. She states she is in the office tomorrow and will be able to answer more questions if she gets a phone call. Her number is [phone]. (4) Hypertension: Code(s): I10 - Essential (primary) hypertension Status: Acute Assessment and Plan: Chronic. Home medications: Amlodipine 5 mg daily, Lisinopril 40 mg daily, Metoprolol 25 mg BID and Lasix 50 mg daily - Continue Amlodipine 5 mg daily and Metoprolol 25 mg BID - Hold lisinopril and diuretics. Resume as JESSICA improves - Started on hydralazine 10 mg QID (5) Type 2 diabetes mellitus: Code(s): E11.9 - Type 2 diabetes mellitus without complications Status: Acute Assessment and Plan: - hypoglycemia protocol - POC blood glucose ACHS - home medication - lantus 30 units, lispro 12 units TIDWM, linagliptin 5 mg, metformin 500 mg - correct regimen ordered - lantus 30 units daily and low dose TIDWM - Hold mealtime 12 units currently with very poor intake noted this am, may need reintroduced if intake improves. - BS reviewed (6) Dementia: Code(s): F03.90 - Unspecified dementia, unspecified severity, without behavioral disturbance, psychotic disturbance, mood disturbance, and anxiety Status: Acute Assessment and Plan: - Known dementia, history of combativeness. - Currently in restraints which will continue for the patient's safety. Close monitoring and removal if safely able to tolerate. DS: Summary Hospital Course Hospital Course: Following issues addressed: # fall- Head CT: No acute intracranial process. Extensive paranasal sinus mucoperiosteal disease. Bilateral mastoid effusions and middle ear fluid, correlate for clinical findings of otomastoiditis. - Chest XR: No acute cardiopulmonary process. - C spine CT: No acute fracture or traumatic malalignment in the cervical spine. - PT/OT worked with her # UTI - UA: turbid appearance, 3+ protein, positive nitrates, 3+ leukocytes, >100 WBC, 4+ bacteria - UC obtained on 12/02: pending - No previous micro to be reviewed - started on Rocephin on 12/03 - downgrade antibiotics to PO on 12/05- tolerated well # htn - Amlodipine 5 mg daily, Lisinopril 40 mg daily, Metoprolol 25 mg BID and Lasix 50 mg daily holding lisinopril and diuretics. Resume as JESSICA improves - Started on hydralazine 10 mg QID # dementia # aggressive behavior/combative/sundown syndrome - started on seroquel Time Spent with Patient Time attestation: Total time spent providing and/or coordinating discharge services: Exam Narrative: General: female in no acute respiratory distress who is nontoxic appearing, lying semi recumbent in bed. HEENT: Normocephalic. Atraumatic. Extraocular movement intact. Sclera clear and anicteric. No facial asymmetry. Chest: Lungs are clear to auscultation bilaterally. With slight audible inspiratory wheeze. No crackles. CV: Heart was regular rate and rhythm. S1-S2. No murmurs, gallops, or rubs. Abd: Abdomen was soft. Nontender. Nondistended. Positive bowel sounds. No organomegaly or masses. Ext: No clubbing, cyanosis, or edema. 2+ DP pulses bilaterally. Neuro: Patient is alert and oriented x0. baseline Const: General: comfortable, no acute distress, well developed, alert, awake and average body habitus Nutritional Appearance: average body habitus Orientation/consciousness: oriented to person Other: well-appearing HENMT: Head: normal to inspection, normocephalic and atraumatic Ears: hearing grossly normal bilaterally Face/Nose/Sinus: normal facial exam Face and sinus: normal facial exam Eyes: General: appearance normal, both eyes and all related structures Pupils: Equal, round and reactive pupils present EOM: EOMs intact bilaterally Neck: Neck: full ROM, no lymphadenopathy and no JVD Thyroid: thyroid normal Lymphatic: no lymphadenopathy noted Resp: Effort & Inspection: normal respiratory effort and able to speak in complete sentences Auscultation: clear to auscultation bilaterally Cardio: Jugular venous distension: no JVD Rate: regular rate Rhythm: regular rhythm Heart sounds: S1 normal heart sound present and S2 normal heart sound present : General: Yes deferred Skin: Rashes: no rashes Wounds: no wounds Neuro: General: oriented to person, no focal motor deficits, CN's II-XI intact bilaterally and Unable to assess gait Cranial nerves: Yes CN's II-XII intact bilaterally and Yes Equal, round and reactive pupils present Cognition (Neuro): abnormal cognition ( patient is only oriented to person) Speech: normal speech Gait exam (Neuro): Unable to assess gait Motor exam (neuro): 5/5 motor strength present throughout Extrem: General: normal to inspection, full ROM, no joint enlargement and no pedal edema DS: Data Data Completed and Pending Labs on day of discharge: Labs from last 24 hours 12/07/23 12/07/23 12/06/23 11:58 08:10 16:31 POC Capillary Glucose 286 H 343 H 284 H Discharge Plan Discharge Discharging Clinician: Chioma Zuleta Patient Disposition: SNF Activity: may shower Diet: diabetic Discharge Instructions: please have pt f/u with PCP in a week or so for a repeat kidney function. we w ere holding her lisinopril and lasix as her kidney function was not WNL and we do not have a baseline number to compare it to. We started her on hydralazine 10 mg qid meanwhile. Once kidney function improves and PCP thinks it is appropriate, she may stop hydralazine and resume her lisinopril and/or lasix- but she needs an evaluation for that. Please monitor BP and bring log to the [facility]remi. She completed a course for antibiotics. WE started her on Seroquel to help with dementia/combative behavior. Discussed with daughter- she was going to reach out to hospice for eval. Patient Instructions: Urinary Tract Infection in Women (DC), Pain Management (DC) Stand Alone Forms: General Discharge Information Discharge Medications: New hydralazine 10 mg Tablet 10 mg PO QID Qty: 90 0RF quetiapine [Seroquel] 25 mg Tablet 12.5 mg PO QAM Qty: 90 0RF quetiapine [Seroquel] 25 mg Tablet 25 mg PO HS Qty: 90 0RF Continued methocarbamol 750 mg tablet 750 mg PO TID PRN (Reason: muscle spasm) Qty: 30 0RF ascorbic acid (vitamin C) 1,000 mg Tablet 1 g PO DAILY isosorbide mononitrate 30 mg tablet extended release 24 hr 30 mg PO DAILY calcium carbonate 200 mg calcium (500 mg) Tablet,Chewable 400 mg PO BID nitroglycerin 0.4 mg Tablet, Sublingual 0.4 mg SUBLINGUAL Q5M PRN (Reason: Chest Pain) Rx Instructions: do not exceed 3 doses per episode insulin lispro [Admelog U-100 Insulin lispro] 100 unit/mL solution 12 unit subcut DIRECTED Rx Instructions: administer before meals; HOLD if bs <90 albuterol sulfate [Proventil HFA] 90 mcg/actuation Hfa Aerosol Inhaler 2 puff INHALATION Q4H PRN (Reason: sob/wheezing) zinc oxide Cream 1 applic TOPICAL QSHIFT Rx Instructions: apply to buttock with every incontinent episode cholestyramine (with sugar) 4 gram powder in packet 1 ea PO DAILY insulin glargine [Lantus Solostar U-100 Insulin] 100 unit/mL (3 mL) insulin pen 30 unit SUBCUT DAILY Eucerin Cream 1 applic TOPICAL BID magnesium oxide 400 mg magnesium Tablet 400 mg PO DAILY amlodipine 5 mg tablet 5 mg PO DAILY atorvastatin 10 mg tablet 10 mg PO DAILY multivitamin 1 tablet PO DAILY glucagon 1 mg recon soln 1 mg subcut Q20M PRN (Reason: Hypoglycemia) Rx Instructions: until target blood sugar attained levothyroxine 150 mcg capsule 150 mcg PO DAILY metoprolol tartrate 25 mg tablet 25 mg PO BID ondansetron HCl 4 mg tablet 4 mg PO Q6H PRN (Reason: nausea/vomiting) Tradjenta 5 mg tablet 5 mg PO QAM bupropion HCl [Wellbutrin XL] 150 mg tablet extended release 24 hr 300 mg PO QAM metformin 500 mg tablet 500 mg PO DAILY metolazone 2.5 mg tablet 2.5 mg PO DAILY divalproex [Depakote] 250 mg tablet,delayed release (DR/EC) 250 mg PO Q12H famotidine 20 mg tablet 20 mg PO DAILY Rexulti 0.5 mg tablet 0.5 mg PO DAILY Held lisinopril 40 mg tablet 40 mg PO DAILY Hold Instructions: Resume on 01/04/24. hold until f/u with pcp and kideny function rechecked furosemide 40 mg tablet 40 mg PO QAM Hold Instructions: Resume on 01/04/24. hold until f/u with pcp and kidneyfunction rechecked Date of admission: 12/05/23 10:55 Primary Care Provider: Gustavo Nieves Admitting Provider: Alejandra Kenny V. Attending physician on admission: Penny Breen Condition: Stable Quality VTE Prophylaxis VTE prophylaxis: pharmacologic ordered Hospitalist MIPS Heart Failure (Exclusion) Patient has history of Heart Transplant or Left Ventricular Assistive Device?: No IF YES, STOP HERE Heart Failure (Qualifier) Patient has current or prior documentation of LVEF less than or equal to 40%, or mod/servere depressed LVSF?: No IF NO, STOP HERE
== END 2023-12-07 16:25 | DRG 690 ==
LOC: ANHED 18:35 → ANH3MEDSUR 22:58
PROVIDERS: Nurse Practitioner Family; Student in an Organized Health Care Education/Training Program; Admitting Provider Internal Medicine; Emergency Provider Physician Assistant; PCP Internal Medicine; Visit Provider Nurse Practitioner
DX: N39.0 Urinary tract infection, site not specified (principal); N17.9 Acute kidney failure, unspecified; I51.7 Cardiomegaly; I12.9 Hypertensive chronic kidney disease with stage 1 through stage 4 chronic kidney disease, or unspecified chronic kidney disease; N18.30 Chronic kidney disease, stage 3 unspecified; E11.22 Type 2 diabetes mellitus with diabetic chronic kidney disease; E03.9 Hypothyroidism, unspecified; J44.9 Chronic obstructive pulmonary disease, unspecified; F32.9 Major depressive disorder, single episode, unspecified; F03.90 Unspecified dementia, unspecified severity, without behavioral disturbance, psychotic disturbance, mood disturbance, and anxiety; Z91.81 History of falling; Z79.4 Long term (current) use of insulin
CPT/HCPCS: 36415; 70450; 71045; 72125; 76775; 80048; 81001; 82948; 83970; 85025; 85027; 87086; 87186; 93005; 96365; 96366; 96372; 96375; 99284; 99285; A9270; G0378; J0696; J1200; J1630; J1644; J1815; J2060; J2359; J2405; J7030

== ENCOUNTER 2023-12-07 18:32 | Emergency (ER) | payer MEDICARE, SELFPAY ==
[2023-12-07 18:29] VITALS: PULSE 66; RESP 22; TEMP 36.4; O2SAT 96
[2023-12-07 19:36] LABS: Glucose Point of Care 190 mg/dl (65-105)
--- NOTE | 2023-12-07 19:47 | ED.AMS ---
HPI - Altered Mental Status General Chief Complaint: Altered Mental Status Stated Complaint: axox1, combative with ems, spitting, lethargic Time Seen by Provider: 12/07/23 19:25 History of Present Illness HPI narrative: 83-year-old female presenting from her care home facility. She has a history of known advanced dementia history of combativeness, chronic kidney disease, type 2 diabetes on insulin. She was just discharged several hours prior to arrival back to the ED. Patient was returning from her skilled nurse facility as they were concerned that she was aggressive and combative and spitting at staff. They informed us that patient was slightly more lethargic than her baseline, but this seemed to have been completely resolved upon EMS arrival and evaluation by us in the ED. She is awake and alert to her baseline which is alert x1. Intermittently combative but also intermittently very calm and cooperative. She is being treated with a UTI and was down titrated to p.o. antibiotics yesterday. Her kidney function is being monitored and there was no new events such as falls, trauma, injuries since her discharge at 3:00 p.m. today. She otherwise appears in her normal state of health and was just discharged after a several day hospital course with clinical improvement to baseline. Related Data Home Medications Medication Instructions Recorded Confirmed amlodipine 5 mg tablet 5 mg PO DAILY 08/07/23 12/03/23 atorvastatin 10 mg tablet 10 mg PO DAILY 08/07/23 12/03/23 brexpiprazole 0.5 mg tablet 0.5 mg PO DAILY 08/07/23 12/03/23 (Rexulti) bupropion HCl 150 mg 24 hr tablet, 300 mg PO QAM 08/07/23 12/03/23 extended release (Wellbutrin XL) divalproex 250 mg tablet,delayed 250 mg PO Q12H 08/07/23 12/03/23 release (Depakote) famotidine 20 mg tablet 20 mg PO DAILY 08/07/23 12/03/23 furosemide 40 mg tablet 40 mg PO QAM 08/07/23 12/03/23 glucagon 1 mg solution for 1 mg subcut Q20M PRN Hypoglycemia 08/07/23 12/03/23 injection levothyroxine 150 mcg capsule 150 mcg PO DAILY 08/07/23 12/03/23 linagliptin 5 mg tablet (Tradjenta) 5 mg PO QAM 08/07/23 12/03/23 lisinopril 40 mg tablet 40 mg PO DAILY 08/07/23 12/03/23 metformin 500 mg tablet 500 mg PO DAILY 08/07/23 12/03/23 metolazone 2.5 mg tablet 2.5 mg PO DAILY 08/07/23 12/03/23 metoprolol tartrate 25 mg tablet 25 mg PO BID 08/07/23 12/03/23 multivitamin 1 tablet PO DAILY 08/07/23 12/03/23 ondansetron HCl 4 mg tablet 4 mg PO Q6H PRN nausea/vomiting 08/07/23 12/03/23 albuterol sulfate 90 mcg/actuation 2 puff inhalation Q4H PRN 12/03/23 12/03/23 aerosol inhaler sob/wheezing ascorbic acid (vitamin C) 1,000 mg 1 g PO DAILY 12/03/23 12/03/23 tablet calcium carbonate 400 mg PO BID 12/03/23 12/03/23 cholestyramine (with sugar) 4 gram 1 ea PO DAILY 12/03/23 12/03/23 powder for susp in a packet insulin glargine 100 unit/mL (3 30 unit subcut DAILY 12/03/23 12/03/23 mL) subcutaneous pen (Lantus Solostar U-100 Insulin) insulin lispro 100 unit/mL 12 unit subcut DIRECTED 12/03/23 12/03/23 subcutaneous solution (Admelog U-100 Insulin lispro) isosorbide mononitrate 30 mg 30 mg PO DAILY 12/03/23 12/03/23 tablet,extended release 24 hr lanolin alcohols-mineral 1 applic topical BID 12/03/23 12/03/23 oil-w.petrolatum-ceresin topical cream (Eucerin topical cream) magnesium oxide 400 mg PO DAILY 12/03/23 12/03/23 nitroglycerin 0.4 mg sublingual 0.4 mg sublingual Q5M PRN Chest 12/03/23 12/03/23 tablet Pain zinc oxide 1 applic topical QSHIFT 12/03/23 12/03/23 Allergies Allergy/AdvReac Type Severity Reaction Status Date / Time No Known Allergies Allergy Verified 12/03/23 22:59 Review of Systems Review of Systems: Patient has advanced dementia not able to provide collateral information such as ROS PMFSH Past Medical History Medical History Dementia Ulna fracture Social History Social History (Reviewed
[2023-12-07] MEDS: OLANZapine 10 MG INJ VIAL 5 MG IM (22:54)
[2023-12-07] MEDS: WATER, STERILE FOR INJECTION 10 ML VIAL XX (22:56)
--- NOTE | 2023-12-07 22:56 | PC.NURSE ---
pt declined taking seroquel. patient is axo0 at this time and is combative.
[2023-12-07] MEDS: HALOPERIDOL LACTATE 5 MG/ML VIAL IM (23:33)
--- NOTE | 2023-12-08 00:15 | PC.NURSE ---
gab refused to take because she was hitting and scratching people so they left
[2023-12-08 01:01] VITALS: BP 171/82; PULSE 88; RESP 14; O2SAT 99
[2023-12-08] MEDS: diphenhydrAMINE HCl INJ 50 MG/ML VIAL IM (01:01)
--- NOTE | 2023-12-08 01:01 | PC.NURSE ---
Since this RN assumed care of pt at 1900 pt has remained physically and verbally aggressive towards staff. Pt has spit on multiple staff members and attempted to scratch as well. Transport to take pt back to shelter arrived around 2300 and could not take pt due to her physical aggression. Pt has been yelling in room for around 4 hours.
[2023-12-08 07:43] VITALS: BP 112/35; PULSE 75; RESP 21; O2SAT 94
[2023-12-08 08:13] VITALS: BP 155/94; PULSE 74; RESP 19; TEMP 36.6; O2SAT 94
== END 2023-12-08 08:17 ==
LOC: ANHED 19:57
PROVIDERS: Emergency Provider Student in an Organized Health Care Education/Training Program; PCP Internal Medicine
DX: F03.90 Unspecified dementia, unspecified severity, without behavioral disturbance, psychotic disturbance, mood disturbance, and anxiety (principal); E11.22 Type 2 diabetes mellitus with diabetic chronic kidney disease; N18.9 Chronic kidney disease, unspecified; Z79.899 Other long term (current) drug therapy; Z79.4 Long term (current) use of insulin; Z79.84 Long term (current) use of oral hypoglycemic drugs
CPT/HCPCS: 82948; 96372; 99284; A9270; J1200; J1630; J2359

== ENCOUNTER 2023-12-30 04:41 | Emergency (ER) | payer MEDICARE, SELFPAY ==
[2023-12-30 04:44] VITALS: PULSE 90; RESP 16; O2SAT 100
--- NOTE | 2023-12-30 04:48 | ED.GENADULT ---
HPI - General Adult General Chief complaint: Fall Stated complaint: fall out of bed, then vomiting Time Seen by Provider: 12/30/23 04:42 History of Present Illness HPI narrative: patient is a 83-year-old female that is under hospice care that has a low-level dad that slipped the patient had an episode of vomiting and diarrhea the patient was transported to the hospital by EMS the case was discussed with the patient's hospice providers who recommended that she be transported back to the facility and continue her hospice management Related Data Home Medications Medication Instructions Recorded Confirmed amlodipine 5 mg tablet 5 mg PO DAILY 08/07/23 12/03/23 atorvastatin 10 mg tablet 10 mg PO DAILY 08/07/23 12/03/23 brexpiprazole 0.5 mg tablet 0.5 mg PO DAILY 08/07/23 12/03/23 (Rexulti) bupropion HCl 150 mg 24 hr tablet, 300 mg PO QAM 08/07/23 12/03/23 extended release (Wellbutrin XL) divalproex 250 mg tablet,delayed 250 mg PO Q12H 08/07/23 12/03/23 release (Depakote) famotidine 20 mg tablet 20 mg PO DAILY 08/07/23 12/03/23 furosemide 40 mg tablet 40 mg PO QAM 08/07/23 12/03/23 glucagon 1 mg solution for 1 mg subcut Q20M PRN Hypoglycemia 08/07/23 12/03/23 injection levothyroxine 150 mcg capsule 150 mcg PO DAILY 08/07/23 12/03/23 linagliptin 5 mg tablet (Tradjenta) 5 mg PO QAM 08/07/23 12/03/23 lisinopril 40 mg tablet 40 mg PO DAILY 08/07/23 12/03/23 metformin 500 mg tablet 500 mg PO DAILY 08/07/23 12/03/23 metolazone 2.5 mg tablet 2.5 mg PO DAILY 08/07/23 12/03/23 metoprolol tartrate 25 mg tablet 25 mg PO BID 08/07/23 12/03/23 multivitamin 1 tablet PO DAILY 08/07/23 12/03/23 ondansetron HCl 4 mg tablet 4 mg PO Q6H PRN nausea/vomiting 08/07/23 12/03/23 albuterol sulfate 90 mcg/actuation 2 puff inhalation Q4H PRN 12/03/23 12/03/23 aerosol inhaler sob/wheezing ascorbic acid (vitamin C) 1,000 mg 1 g PO DAILY 12/03/23 12/03/23 tablet calcium carbonate 400 mg PO BID 12/03/23 12/03/23 cholestyramine (with sugar) 4 gram 1 ea PO DAILY 12/03/23 12/03/23 powder for susp in a packet insulin glargine 100 unit/mL (3 30 unit subcut DAILY 12/03/23 12/03/23 mL) subcutaneous pen (Lantus Solostar U-100 Insulin) insulin lispro 100 unit/mL 12 unit subcut DIRECTED 12/03/23 12/03/23 subcutaneous solution (Admelog U-100 Insulin lispro) isosorbide mononitrate 30 mg 30 mg PO DAILY 12/03/23 12/03/23 tablet,extended release 24 hr lanolin alcohols-mineral 1 applic topical BID 12/03/23 12/03/23 oil-w.petrolatum-ceresin topical cream (Eucerin topical cream) magnesium oxide 400 mg PO DAILY 12/03/23 12/03/23 nitroglycerin 0.4 mg sublingual 0.4 mg sublingual Q5M PRN Chest 12/03/23 12/03/23 tablet Pain zinc oxide 1 applic topical QSHIFT 12/03/23 12/03/23 Allergies Allergy/AdvReac Type Severity Reaction Status Date / Time No Known Allergies Allergy Verified 12/03/23 22:59 Review of Systems Review of Systems: A 10 system review of systems was completed on the patient and is negative except for what is stated in the HPI. Nursing and ancillary documentation was reviewed. [facility] Past Medical History Medical History Dementia Ulna fracture Social History Social History Smoking status: Never smoker Spiritual care concerns: No Exam Narrative: GENERAL: no acute distress. HEAD: Normocephalic, atraumatic. EYES: PERRLA and EOMI. ENT: Nares clear, no rhinorrhea or epistaxis. Mucous membranes moist. NECK: Supple. CHEST: Clear to auscultation. No respiratory distress. HEART: Regular rate and rhythm. No murmur heard. Normal peripheral pulses. ABDOMEN: Soft, nontender, nondistended, normal active bowel sounds. EXTREMITIES: Normal range of motion. No edema. SKIN: Warm, dry, no rash. NEURO: No focal deficits. Alert and oriented 2. PSYCH: Normal mood and affect. Medical Decision Making MDM Narrative Medical decision making narrative: the patient is alert at her baseline neurological status the patient is a hospice care patient in discussion with the patient's hospice provider they requested that the patient be transported back to the facility to be able to continue her hospice care Discharge Plan Discharge Clinical Impression: Vomiting, Dementia, Ground-level fall, Hospice care Patient Disposition: [facility] Senior Care/Asst Living Condition: Stable Instructions: Antibiotic Form, Acute Nausea and Vomiting (ED), Fall Prevention (ED) Prescriptions: No Action methocarbamol 750 mg tablet 750 mg PO TID PRN (Reason: muscle spasm) Qty: 30 0RF ascorbic acid (vitamin C) 1,000 mg Tablet 1 g PO DAILY isosorbide mononitrate 30 mg tablet extended release 24 hr 30 mg PO DAILY calcium carbonate 200 mg calcium (500 mg) Tablet,Chewable 400 mg PO BID nitroglycerin 0.4 mg Tablet, Sublingual 0.4 mg SUBLINGUAL Q5M PRN (Reason: Chest Pain) Rx Instructions: do not exceed 3 doses per episode insulin lispro [Admelog U-100 Insulin lispro] 100 unit/mL solution 12 unit subcut DIRECTED Rx Instructions: administer before meals; HOLD if bs <90 albuterol sulfate 90 mcg/actuation Hfa Aerosol Inhaler 2 puff INHALATION Q4H PRN (Reason: sob/wheezing) zinc oxide Cream 1 applic TOPICAL QSHIFT Rx Instructions: apply to buttock with every incontinent episode cholestyramine (with sugar) 4 gram powder in packet 1 ea PO DAILY insulin glargine [Lantus Solostar U-100 Insulin] 100 unit/mL (3 mL) insulin pen 30 unit SUBCUT DAILY Eucerin Cream 1 applic TOPICAL BID magnesium oxide 400 mg magnesium Tablet 400 mg PO DAILY quetiapine [Seroquel] 25 mg Tablet 25 mg PO HS Qty: 90 0RF quetiapine [Seroquel] 25 mg Tablet 12.5 mg PO QAM Qty: 90 0RF hydralazine 10 mg Tablet 10 mg PO QID Qty: 90 0RF amlodipine 5 mg tablet 5 mg PO DAILY atorvastatin 10 mg tablet 10 mg PO DAILY multivitamin 1 tablet PO DAILY glucagon 1 mg recon soln 1 mg subcut Q20M PRN (Reason: Hypoglycemia) Rx Instructions: until target blood sugar attained levothyroxine 150 mcg capsule 150 mcg PO DAILY lisinopril 40 mg tablet 40 mg PO DAILY Hold Instructions: Resume on 01/04/24. hold until f/u with pcp and kideny function rechecked metoprolol tartrate 25 mg tablet 25 mg PO BID ondansetron HCl 4 mg tablet 4 mg PO Q6H PRN (Reason: nausea/vomiting) Tradjenta 5 mg tablet 5 mg PO QAM bupropion HCl [Wellbutrin XL] 150 mg tablet extended release 24 hr 300 mg PO QAM metformin 500 mg tablet 500 mg PO DAILY furosemide 40 mg tablet 40 mg PO QAM Hold Instructions: Resume on 01/04/24. hold until f/u with pcp and kidneyfunction rechecked metolazone 2.5 mg tablet 2.5 mg PO DAILY divalproex [Depakote] 250 mg tablet,delayed release (DR/EC) 250 mg PO Q12H famotidine 20 mg tablet 20 mg PO DAILY Rexulti 0.5 mg tablet 0.5 mg PO DAILY Follow-up/Referrals: [place],MD Gustavo [Primary Care Provider] - Time of Disposition: 04:51
[2023-12-30] MEDS: ONDANSETRON INJ 4 MG/2 ML VIAL IV PUSH (04:53)
[2023-12-30 04:56] VITALS: BP 132/63; PULSE 75; RESP 18; TEMP 36.8; O2SAT 99
--- NOTE | 2023-12-30 04:59 | PC.NURSE ---
called report to [facility] at this time, spoke with Shantel.
--- NOTE | 2023-12-30 05:01 | PC.NURSE ---
this patinet brought in bibems for fall, nausea and vomiting. Per Hospice care no workup necessary. Patient has been cleaned up and fresh gown and blanket given.
== END 2023-12-30 08:14 ==
PROVIDERS: Emergency Provider Emergency Medicine; PCP Internal Medicine
DX: R11.10 Vomiting, unspecified (principal); F03.90 Unspecified dementia, unspecified severity, without behavioral disturbance, psychotic disturbance, mood disturbance, and anxiety; W19.XXXA Unspecified fall, initial encounter
CPT/HCPCS: 96374; 99284; J2405

== ENCOUNTER 2024-02-01 22:08 | Emergency (ER) | payer MEDICARE, SELFPAY ==
--- NOTE | ~2024-02-01 | XR_ITS ---
XR hip RT 2V w AP pelvis Ordering provider: Link Mazariegos PA-C History: . fall, right hip tenderness . Comparison: None. FINDINGS: BONES: No acute fracture or dislocation. HIP JOINT SPACES: Bilateral moderate osteoarthritic changes. SACROILIAC JOINT SPACES/LUMBAR SPINE: The sacroiliac joint spaces are normal. Mild degenerative garcía es of the visualized lower lumbar spine. PUBIC SYMPHYSIS: Pubic symphysitis. SOFT TISSUES: Atherosclerotic changes IMPRESSION: No acute osseous abnormality pelvis and right hip. Reviewed, dictated and finalized at location A. NT DEVELOPMENT DIRECTOR
[2024-02-01 22:20] VITALS: BP 109/54; PULSE 85; RESP 16; TEMP 36.2; O2SAT 99
--- NOTE | 2024-02-01 22:21 | ED.FALL ---
HPI - Fall General Chief Complaint: Fall Stated Complaint: FALL Time Seen by Provider: 02/01/24 22:14 Source: patient and EMS Mode of arrival: EMS Limitations: dementia History of Present Illness HPI Narrative: This is a 83-year-old female who arrives via EMS from senior care for chief complaint of possible fall this evening. [facility] staff reported to EMS that they were concerned for possible head injury. The patient was with 1 leg in the bed rail and her head near the headboard on the ground. Patient is nonverbal and demented. She is on hospice currently. Related Data Home Medications Medication Instructions Recorded Confirmed amlodipine 5 mg tablet 5 mg PO DAILY 08/07/23 12/03/23 atorvastatin 10 mg tablet 10 mg PO DAILY 08/07/23 12/03/23 brexpiprazole 0.5 mg tablet 0.5 mg PO DAILY 08/07/23 12/03/23 (Rexulti) bupropion HCl 150 mg 24 hr tablet, 300 mg PO QAM 08/07/23 12/03/23 extended release (Wellbutrin XL) divalproex 250 mg tablet,delayed 250 mg PO Q12H 08/07/23 12/03/23 release (Depakote) famotidine 20 mg tablet 20 mg PO DAILY 08/07/23 12/03/23 furosemide 40 mg tablet 40 mg PO QAM 08/07/23 12/03/23 glucagon 1 mg solution for 1 mg subcut Q20M PRN Hypoglycemia 08/07/23 12/03/23 injection levothyroxine 150 mcg capsule 150 mcg PO DAILY 08/07/23 12/03/23 linagliptin 5 mg tablet (Tradjenta) 5 mg PO QAM 08/07/23 12/03/23 lisinopril 40 mg tablet 40 mg PO DAILY 08/07/23 12/03/23 metformin 500 mg tablet 500 mg PO DAILY 08/07/23 12/03/23 metolazone 2.5 mg tablet 2.5 mg PO DAILY 08/07/23 12/03/23 metoprolol tartrate 25 mg tablet 25 mg PO BID 08/07/23 12/03/23 multivitamin 1 tablet PO DAILY 08/07/23 12/03/23 ondansetron HCl 4 mg tablet 4 mg PO Q6H PRN nausea/vomiting 08/07/23 12/03/23 albuterol sulfate 90 mcg/actuation 2 puff inhalation Q4H PRN 12/03/23 12/03/23 aerosol inhaler sob/wheezing ascorbic acid (vitamin C) 1,000 mg 1 g PO DAILY 12/03/23 12/03/23 tablet calcium carbonate 400 mg PO BID 12/03/23 12/03/23 cholestyramine (with sugar) 4 gram 1 ea PO DAILY 12/03/23 12/03/23 powder for susp in a packet insulin glargine 100 unit/mL (3 30 unit subcut DAILY 12/03/23 12/03/23 mL) subcutaneous pen (Lantus Solostar U-100 Insulin) insulin lispro 100 unit/mL 12 unit subcut DIRECTED 12/03/23 12/03/23 subcutaneous solution (Admelog U-100 Insulin lispro) isosorbide mononitrate 30 mg 30 mg PO DAILY 12/03/23 12/03/23 tablet,extended release 24 hr lanolin alcohols-mineral 1 applic topical BID 12/03/23 12/03/23 oil-w.petrolatum-ceresin topical cream (Eucerin topical cream) magnesium oxide 400 mg PO DAILY 12/03/23 12/03/23 nitroglycerin 0.4 mg sublingual 0.4 mg sublingual Q5M PRN Chest 12/03/23 12/03/23 tablet Pain zinc oxide 1 applic topical QSHIFT 12/03/23 12/03/23 Allergies Allergy/AdvReac Type Severity Reaction Status Date / Time No Known Allergies Allergy Verified 12/03/23 22:59 Review of Systems Review of Systems: ROS unobtainable: Yes unobtainable due to mental status PMFSH Past Medical History Medical History Dementia Ulna fracture Social History Social History Smoking status: Never smoker Spiritual care concerns: No Exam Narrative: GENERAL: Well-appearing, well-nourished, and in no acute distress. HEAD: Normocephalic, atraumatic. EYES: PERRLA and EOMI. ENT: Nares clear, no rhinorrhea or epistaxis. Mucous membranes moist. Oropharynx without tonsillar hypertrophy exudate or other lesions. NECK: Supple. No adenopathy or masses. CHEST: No respiratory distress. Clear to auscultation. No wheezes rales or rhonchi HEART: Regular rate and rhythm. No murmur heard. Normal peripheral pulses. ABDOMEN: Soft, nontender, nondistended, normal active bowel sounds. MSK: Normal range of motion. No edema. SKIN: Warm, dry, no rash. NEURO: Alert and oriented x4. No focal deficits. PSYCH: Normal mood and affect. Course Vital Signs Vital signs: Vital Signs Temperature 97.2 F L 02/01/24 22:20 Pulse Rate 85 02/01/24 22:20 Respiratory Rate 16 02/01/24 22:20 Blood Pressure 109/54 L 02/01/24 22:20 Pulse Oximetry 99 02/01/24 22:20 Oxygen Delivery Room Air 02/01/24 22:20 Temperature 97.2 F L 02/01/24 22:20 Pulse Rate 85 02/01/24 22:20 Respiratory Rate 16 02/01/24 22:20 Blood Pressure 109/54 L 02/01/24 22:20 Pulse Oximetry 99 02/01/24 22:20 Oxygen Delivery Room Air 02/01/24 22:20 MDM - Fall MDM Narrative Medical decision making narrative: This is a 83-year-old female who is on hospice and presents to the ED via EMS from senior care for a possible fall. Vitals are normal. Exam shows patient is at her mental status baseline. X-rays of the hip were obtained due to patient having some tenderness to the right hip. X-ray show no acute osseous findings. Family member is bedside after the x-rays. They are appreciative of our care. They explained that they did not with the patient to leave the senior care tonight but EMS was told by the senior care that she had to be seen for the fall. Family members comfortable with patient going home without any further workup. Patient will be discharged in stable condition. Discharge Plan Discharge Clinical Impression: Fall Patient Disposition: [facility] Condition: Stable Instructions: Antibiotic Form Additional Instructions: Exam and imaging today are reassuring. If you have any new or worsening symptoms please return to the ER for further evaluation. Prescriptions: No Action methocarbamol 750 mg tablet 750 mg PO TID PRN (Reason: muscle spasm) Qty: 30 0RF ascorbic acid (vitamin C) 1,000 mg Tablet 1 g PO DAILY isosorbide mononitrate 30 mg tablet extended release 24 hr 30 mg PO DAILY calcium carbonate 200 mg calcium (500 mg) Tablet,Chewable 400 mg PO BID nitroglycerin 0.4 mg Tablet, Sublingual 0.4 mg SUBLINGUAL Q5M PRN (Reason: Chest Pain) Rx Instructions: do not exceed 3 doses per episode insulin lispro [Admelog U-100 Insulin lispro] 100 unit/mL solution 12 unit subcut DIRECTED Rx Instructions: administer before meals; HOLD if bs <90 albuterol sulfate 90 mcg/actuation Hfa Aerosol Inhaler 2 puff INHALATION Q4H PRN (Reason: sob/wheezing) zinc oxide Cream 1 applic TOPICAL QSHIFT Rx Instructions: apply to buttock with every incontinent episode cholestyramine (with sugar) 4 gram powder in packet 1 ea PO DAILY insulin glargine [Lantus Solostar U-100 Insulin] 100 unit/mL (3 mL) insulin pen 30 unit SUBCUT DAILY Eucerin Cream 1 applic TOPICAL BID magnesium oxide 400 mg magnesium Tablet 400 mg PO DAILY quetiapine [Seroquel] 25 mg Tablet 25 mg PO HS Qty: 90 0RF quetiapine [Seroquel] 25 mg Tablet 12.5 mg PO QAM Qty: 90 0RF hydralazine 10 mg Tablet 10 mg PO QID Qty: 90 0RF amlodipine 5 mg tablet 5 mg PO DAILY atorvastatin 10 mg tablet 10 mg PO DAILY multivitamin 1 tablet PO DAILY glucagon 1 mg recon soln 1 mg subcut Q20M PRN (Reason: Hypoglycemia) Rx Instructions: until target blood sugar attained levothyroxine 150 mcg capsule 150 mcg PO DAILY lisinopril 40 mg tablet 40 mg PO DAILY Hold Instructions: Resume on 01/04/24. hold until f/u with pcp and kideny function rechecked metoprolol tartrate 25 mg tablet 25 mg PO BID ondansetron HCl 4 mg tablet 4 mg PO Q6H PRN (Reason: nausea/vomiting) Tradjenta 5 mg tablet 5 mg PO QAM bupropion HCl [Wellbutrin XL] 150 mg tablet extended release 24 hr 300 mg PO QAM metformin 500 mg tablet 500 mg PO DAILY furosemide 40 mg tablet 40 mg PO QAM Hold Instructions: Resume on 01/04/24. hold until f/u with pcp and kidneyfunction rechecked metolazone 2.5 mg tablet 2.5 mg PO DAILY divalproex [Depakote] 250 mg tablet,delayed release (DR/EC) 250 mg PO Q12H famotidine 20 mg tablet 20 mg PO DAILY Rexulti 0.5 mg tablet 0.5 mg PO DAILY Follow-up/Referrals: [place],MD Gustavo [Primary Care Provider] - Stand Alone Forms: [facility] Discharge Time of Disposition: 23:27
[2024-02-02] MEDS: MORPHINE SULFATE ORAL CONC SOL (*CRX) 10 MG/0.5 ML SYRINGE 5 MG PO ×2 (00:01→02:12)
[2024-02-02 00:50] VITALS: BP 111/61; PULSE 89; RESP 18; O2SAT 99
--- NOTE | 2024-02-02 01:16 | PC.NURSE ---
Pt linen and diaper were checked at this time.
[2024-02-02 01:40] VITALS: PULSE 68; RESP 20; O2SAT 100
[2024-02-02] MEDS: LORazepam (*CRX) 2 MG/ML 30 ML ORAL CONCENTRATE 0.5 MG SUBLINGUAL (02:12)
== END 2024-02-02 02:30 | disposition hospice, home (50) ==
PROVIDERS: Emergency Provider Physician Assistant; PCP Internal Medicine
DX: S79.911A Unspecified injury of right hip, initial encounter (principal); F03.90 Unspecified dementia, unspecified severity, without behavioral disturbance, psychotic disturbance, mood disturbance, and anxiety; Z79.899 Other long term (current) drug therapy; Z79.4 Long term (current) use of insulin; W06.XXXA Fall from bed, initial encounter
CPT/HCPCS: 73502; 99283; A9270